=== PATIENT | female | born 1945 | race Caucasian/White ===

== ENCOUNTER → 2017-04-06 | Outpatient (REF) | payer MEDICARE, OTHER | LOC: M LAB REF 11:45 | DX: E04.1 Nontoxic single thyroid nodule (principal) | CPT/HCPCS: 88173 ==

== ENCOUNTER → 2019-01-01 | Outpatient (CLI) | payer MEDICARE, OTHER, BC ==
[2019-01-01 12:24] LABS: BASO % 0.5 % (0.0-1.0); EOS # 0.2 10^3/uL (0.0-0.5); EOS % 2.2 % (0.0-3.0); HEMOGLOBIN 14.1 g/dl (12.0-15.5); LYMPH # 2.1 10^3/uL (1.5-5.0); LYMPH % 27.2 % (24.0-44.0); MEAN CORPUSCULAR HEMOGLOBIN 31.5 pg (27.0-33.0); MEAN CORPUSCULAR VOLUME 98.2 fl (80.0-96.0); MONO # 0.6 10^3/uL (0.0-0.8); MONO % 7.2 % (0.0-5.0); NEUTROPHILS # 4.8 10^3/uL (1.5-8.5); NEUTROPHILS % 62.5 % (36.0-66.0); PLATELET COUNT, AUTOMATED 207 10^3/uL (150-450); RED BLOOD COUNT 4.48 10^6/uL (4.00-5.40); WHITE BLOOD COUNT 7.7 10^3/uL (4.0-10.0)
[2019-01-01 12:44] LABS: ALBUMIN 3.7 GM/DL (3.2-5.2); ALT/SGPT 44 U/L (12-78); BILIRUBIN,TOTAL 0.4 MG/DL (0.2-1.0); BLOOD UREA NITROGEN 20 MG/DL (7-18); CALCIUM LEVEL 9.6 MG/DL (8.8-10.2); CARBON DIOXIDE LEVEL 32 MEQ/L (21-32); CHLORIDE LEVEL 105 MEQ/L (98-107); CHOLESTEROL LEVEL 212 MG/DL (<200); CHOLESTEROL RISK RATIO 3.261 (<5); CREATININE FOR GFR 0.82 MG/DL (0.55-1.30); GLOMERULAR FILTRATION RATE > 60.0 (>39); GLUCOSE, FASTING 93 MG/DL (70-100); HDL CHOLESTEROL 65 MG/DL (>40); LDL CHOLESTEROL 123 MG/DL (<100); NON-HDL-C 147 MG/DL; POTASSIUM SERUM 4.3 MEQ/L (3.5-5.1); SODIUM LEVEL 141 MEQ/L (136-145); TOTAL 25(OH) VITAMIN D 53.5 NG/ML (30.0-100.0); TOTAL PROTEIN 7.2 GM/DL (6.4-8.2); TRIGLYCERIDES LEVEL 118 MG/DL (<150)
== END ==
LOC: M WUC 10:14
PROVIDERS: ATTEND Nurse Practitioner Family
DX: I10 Essential (primary) hypertension (principal); E55.9 Vitamin D deficiency, unspecified

== ENCOUNTER → 2019-12-22 | Outpatient (REF) | payer MEDICARE, OTHER, BC ==
[2019-12-22 13:21] LABS: ALBUMIN 3.5 GM/DL (3.2-5.2); ALT/SGPT 45 U/L (12-78); BILIRUBIN,TOTAL 0.6 MG/DL (0.2-1.0); BLOOD UREA NITROGEN 14 MG/DL (7-18); CALCIUM LEVEL 9.2 MG/DL (8.8-10.2); CARBON DIOXIDE LEVEL 32 MEQ/L (21-32); CHLORIDE LEVEL 102 MEQ/L (98-107); CHOLESTEROL LEVEL 156 MG/DL (<200); CHOLESTEROL RISK RATIO 2.644 (<5); CREATININE FOR GFR 0.86 MG/DL (0.55-1.30); GLOMERULAR FILTRATION RATE > 60.0 (>39); GLUCOSE, FASTING 100 MG/DL (70-100); HDL CHOLESTEROL 59 MG/DL (>40); LDL CHOLESTEROL 68 MG/DL (<100); NON-HDL-C 97 MG/DL; POTASSIUM SERUM 3.8 MEQ/L (3.5-5.1); SODIUM LEVEL 140 MEQ/L (136-145); TRIGLYCERIDES LEVEL 146 MG/DL (<150)
== END ==
LOC: M SFHCCLAY 11:43
PROVIDERS: ATTEND Family Medicine
DX: E78.00 Pure hypercholesterolemia, unspecified (principal); I10 Essential (primary) hypertension

== ENCOUNTER → 2020-08-26 | Outpatient (CLI) | payer MEDICARE, OTHER, BC ==
--- NOTE | 2020-08-26 11:35 | REP ---
INDICATION: ABNORMAL MAMMOGRAM OF RIGHT BREAST 6 MONTH F/U. Mammography from January 22, 2020 was BI-RADS category 0 due to a in small bradley density in the central right breast. The patient had outside diagnostic valuation report of ultrasound from 23 February 2020 describes a 5 mm cyst in the right breast and BI-RADS category 3 follow-up recommendation. COMPARISON: Comparison mammography January 22, 2020, May 17, 2018, and March 13, 2017. TECHNIQUE: Craniocaudal, mediolateral, and mediolateral oblique views of the right breast are obtained and augmented by 3D tomography. Targeted right breast sonography is performed. This mammogram was interpreted with the aid of an FDA-approved computer-aided detection system. FINDINGS: Scattered fibroglandular elements are seen. The previously noted new density in the retroareolar region of the right breast on January 22, 2020 is not seen today. This appears to have regressed. No bradley density, architectural distortion, or microcalcification is seen. 3D tomography shows no additional findings. The Volpara volumetric breast density pattern is B. Targeted ultrasound: Targeted central right breast retroareolar sonography shows heterogeneous fibroglandular background echotexture. No cyst, mass, or acoustic shadowing is seen. IMPRESSION: BIRADS/ACR category 1 negative right breast mammographic and sonographic findings. This patient's Tyrer-Cuzick lifetime breast cancer risk assessment score is 3.6%. RECOMMENDATION: Repeat screening mammography recommended 1 year (for women over 40). The patient letter being requested is M1. <Electronically signed by Jameson Cabello > 08/26/20 0845
== END ==
LOC: M WHC 10:08
PROVIDERS: ATTEND Family Medicine
DX: R92.8 Other abnormal and inconclusive findings on diagnostic imaging of breast (principal)
CPT/HCPCS: 76642; 77065; G0279

== ENCOUNTER → 2020-12-11 | Outpatient (CLI) | payer MEDICARE, BC, OTHER ==
[~2020-12-11] MED LIST: ASPI81CH33 PO; ATOR1TAB19; BENA1TAB32; CITA10TA5; ERGO500029; PANT40TA29; [UNRECOGNIZED DRUG - CODE]
== END ==
LOC: M LABSMTC 11:37
PROVIDERS: ATTEND Anesthesiology
DX: Z01.812 Encounter for preprocedural laboratory examination (principal); Z20.822 Contact with and (suspected) exposure to COVID-19

== ENCOUNTER 2020-12-16 08:53 | Day surgery (SDC) | payer MEDICARE, BC, OTHER ==
[~2020-12-16] VITALS: Ht 170.2 cm; Wt 124.2 kg
[~2020-12-16 08:53] MED LIST changes: +LIDOCAINE 2% 100MG/5ML SDV (FOR ANES.) As Ordered ONE; +NS 1,000 ML IV ONE; +propofoL 200 MG/20 ML VIAL As Ordered ONE
--- OUTSIDE RECORDS SUMMARY | 2020-12-16 08:58 | CCD | Continuity of Care Document ---
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 AUTM [phone] Problems Active Problems Provider Date Essential hypertension Onset: 09/27/2020 Social History Type Date Description Comments Sex Unknown ETOH Use 3 A Month Tobacco Use Start: Unknown Non Smoker Allergies, Adverse Reactions, Alerts Active Allergies Criticality Reaction | Severity Comments Date Sulfa Unable to assess criticality 09/27/2020 Ditropan Unable to assess criticality 09/27/2020 Medications Active Medications SIG Qnty Indications Ordering Provide r Date Clenpiq 10-3.5-12mg-GM -GM/160ML S olution take as directed per doctor's bowel prep instructions. 320ml Z12.1 1 Jorge Velazquez MD 11/02/[address] take 4 tabs by mouth prior to procedure per instructions. 4tabs Z12.11 Jorge Velazquez MD 11/02/2020 Benazepril HCL/Hydrochlorothiazide 10-12.5mg Tablets Daily Unknown Atorvastatin Calcium 10mg Tablets 1 by mouth every day Unknown Pantoprazole Sodium 40mg Tablets D R every other day Unknown Escitalopram Oxalate 10mg Tablets Daily Unknown Aspirin [address] 1 by mouth every day Unknown Vitamin D (Ergocalciferol) 1.25mg (96838 Ut) Capsules 1 cap by mouth every week Unknown Multivitamin Tablets 1 by mouth every day Unknown Clobetasol Propionate Emollient 0.05% Cream prn Unknown Immunizations Description No Information Available Vital Signs Date Vital Result Comment 11/02/2020 8:50am BP Systolic 142 mmHg BP Diastolic 72 mmHg Height 67 inches 5'7" Weight 278.00 lb BMI (Body Mass Index) 43.5 kg/m2 [place] Body Weight 135 lb Weight 126.101 kg BSA (Body Surface Area) 2.33 m2 Results Description No Information Available Procedures Description No Information Available Medical Devices Description No Information Available Encounters Description No Information Available Assessments Date Code Description Provider 11/02/2020 Z12.11 Encounter for screening for shivani gnant neoplasm of colon MURALI Somers 11/02/2020 Z86.010 Personal history of colonic poly ps MURALI Somers Plan of Treatment 11/02/2020 - MURALI Somers* Z12.11 Encounter for screening for malignant neoplasm of colon * Z86.010 Personal history of colonic polyps * * New Medication:* Clenpiq 10-3.5-12 mg-GM -GM/160ML * Dulcolax 5 mg * New Orders:* Colonoscopy, Ordered: 11/02/20 * Comments:* Will arrange for colonoscopy. Reviewed risks and benefits of the procedure, as well as other options, with the patient. Bowel prep procedure was discussed with patient, as well as risks and side effects associated with the bowel prep. Patient verbalized understanding of all of the above and is in agreement to proceed. Patient will seek medical attention for any acute changes. Will monitor. * Follow up:* As scheduled, sooner if needed. Functional Status Description No Information Available Mental Status Description No Information Available Referrals Refer to Reason for Referral Status Appt Date Gilmar Orantes M.D. COLO SCREEN - HX OF POLYP Scheduled 10/20/2020 [facility] [address], [address] [place] [address] [phone]
--- OUTSIDE RECORDS SUMMARY | 2020-12-16 08:58 | CCD | Continuity of Care Document ---
Author Author [facility] Organization Unknown Address [address], [address] [place] [address] Phone [phone] Care Team Providers Care Welding Machine Operator Name Role Phone Hung Saravia M.D. AUTM [phone] Problems Active Problems Provider Date Essential hypertension [...] every day Unknown Vitamin D (Ergocalciferol) 1.25mg (56599 Ut) Capsules 1 cap by mouth every week Unknown Multivitamin Tablets 1 by mouth every day Unknown Clobetasol Propionate Emollient 0.05% Cream prn Unknown Immunizations Description No Information Available Vital Signs Date Vital Result Comment 11/02/2020 8:50am BP Systolic 142 mmHg BP Diastolic 72 mmHg Height 67 inches 5'7" Weight 278.00 lb BMI (Body Mass Index) 43.5 kg/m2 [place] Body Weight 135 lb Weight 126.101 kg [...] SCREEN - HX OF POLYP Scheduled 10/20/2020 [facility] [address], [address] [place] [address] [phone]
--- OUTSIDE RECORDS SUMMARY | 2020-12-16 08:58 | CCD ---
Author Author [facility] Organization [facility] Address Unknown Phone Unavailable Care Team Providers Care Coating Line Worker Name Role Phone Fish, B Anibal SHARPE Unavailable Unavailable Fish, B Anibal SHARPE Unavailable Unavailable Fish, B Anibal SHARPE Unavailable Unavailable Fish, B Anibal SHARPE Unavailable Unavailable Fish, B Anibal SHARPE Unavailable Unavailable Fish, B Anibal SHARPE Unavailable Unavailable Fish, B Anibal SHARPE Unavailable Unavailable Fish, B Anibal SHARPE Unavailable Unavailable Fish, B Anibal SHARPE Unavailable Unavailable Fish, B Anibal SHARPE Unavailable Unavailable Fish, B Anibal SHARPE Unavailable Unavailable Fish, B Anibal SHARPE Unavailable Unavailable Fish, B Anibal SHARPE Unavailable Unavailable Fish, B Anibal SHARPE Unavailable Unavailable Fish, B Anibal SHARPE Unavailable Unavailable Fish, B Anibal SHARPE Unavailable Unavailable Fish, B Anibal SHARPE Unavailable Unavailable Fish, B Anibal SHARPE Unavailable Unavailable Fish, B Anibal SHARPE Unavailable Unavailable Fish, B Anibal SHARPE Unavailable Unavailable Fish, B Anibal SHARPE Unavailable Unavailable Fish, B Anibal SHARPE Unavailable Unavailable Fish, B Anibal SHARPE Unavailable Unavailable Fish, B Anibal SHARPE Unavailable Unavailable Fish, B Anibal SHARPE Unavailable Unavailable Fish, B Anibal SHARPE Unavailable Unavailable Fish, B Anibal SHARPE Unavailable Unavailable Fish, B Anibal SHARPE Unavailable Unavailable Fish, B Anibal SHARPE Unavailable Unavailable Fish, B Anibal SHARPE Unavailable Unavailable Fish, B Anibal SHARPE Unavailable Unavailable Fish, B Anibal SHARPE Unavailable Unavailable Fish, B Anibal SHARPE Unavailable Unavailable Fish, B Anibal SHARPE Unavailable Unavailable Fish, B Anibal SHARPE Unavailable Unavailable Fish, B Anibal SHARPE Unavailable Unavailable Fish, B Anibal SHARPE Unavailable Unavailable Fish, B Anibal SHARPE Unavailable Unavailable Fish, B Anibal SHARPE Unavailable Unavailable Fish, B Anibal SHARPE Unavailable Unavailable Fish, B Anibal SHARPE Unavailable Unavailable Fish, B Anibal SHARPE Unavailable Unavailable Fish, B Anibal SHARPE Unavailable Unavailable Fish, B Anibal SHARPE Unavailable Unavailable Fish, B Anibal SHARPE Unavailable Unavailable Fish, B Anibal SHARPE Unavailable Unavailable Fish, B Anibal SHARPE Unavailable Unavailable Fish, B Anibal SHARPE Unavailable Unavailable Fish, B Anibal SHARPE Unavailable Unavailable Fish, B Anibal SHARPE Unavailable Unavailable Fish, B Anibal SHARPE Unavailable Unavailable Fish, B Anibal SHARPE Unavailable Unavailable Fish, B Anibal SHARPE Unavailable Unavailable Fish, B Anibal SHARPE Unavailable Unavailable Fish, B Anibal SHARPE Unavailable Unavailable Fish, B Anibal SHARPE Unavailable Unavailable Fish, B Kelly SHARPE Unavailable Unavailable Fish, B Kelly SHARPE Unavailable Unavailable Fish, B Kelly SHARPE Unavailable Unavailable Fish, B Kelly SHARPE Unavailable Unavailable Fish, B Kelly SHARPE Unavailable Unavailable Fish, B Kelly SHARPE Unavailable Unavailable Fish, B Kelly SHARPE Unavailable Unavailable Fish, B Kelly SHARPE Unavailable Unavailable Fish, B Kelly SHARPE Unavailable Unavailable Fish, B Kelly SHARPE Unavailable Unavailable Fish, B Kelly SHARPE Unavailable Unavailable Fish, B Kelly SHARPE Unavailable Unavailable Fish, B Kelly SHARPE Unavailable Unavailable Fish, B Kelly SHARPE Unavailable Unavailable Fish, B Kelly SHARPE Unavailable Unavailable Fish, B Kelly SHARPE Unavailable Unavailable Fish, B Kelly SHARPE Unavailable Unavailable Fish, B Kelly SHARPE Unavailable Unavailable Fish, Clyde Mendoza MD Unavailable Unavailable Fish, B Kelly SHARPE Unavailable Unavailable Fish, B Kelly SHARPE Unavailable Unavailable Fish, B Kelly SHARPE Unavailable Unavailable Fish, B Kelly SHARPE Unavailable Unavailable Fish, B Kelly SHARPE Unavailable Unavailable Fish, B Kelly SHARPE Unavailable Unavailable Fish, B Kelly SHARPE Unavailable Unavailable Fish, B Kelly SHARPE Unavailable Unavailable Fish, B Kelly SHARPE Unavailable Unavailable Fish, B Kelly SHARPE Unavailable Unavailable Fish, B Kelly SHARPE Unavailable Unavailable Fish, B Kelly SHARPE Unavailable Unavailable Fish, B Kelly SHARPE Unavailable Unavailable Fish, B Kelly SHARPE Unavailable Unavailable Fish, B Kelly SHARPE Unavailable Unavailable Fish, B Kelly MD Unavailable Unavailable Fish, B Kelly MD Unavailable Unavailable Fish, B Kelly MD Unavailable Unavailable Fish, B Kelly MD Unavailable Unavailable Fish, B Kelly MD Unavailable Unavailable Fish, B Kelly MD Unavailable Unavailable Fish, B Kelly MD Unavailable Unavailable Fish, B Kelly MD Unavailable Unavailable Fish, B Kelly MD Unavailable Unavailable Fish, B Kelly MD Unavailable Unavailable Fish, B Kelly MD Unavailable Unavailable Fish, B Kelly MD Unavailable Unavailable Fish, B Kelly MD Unavailable Unavailable Fish, B Kelly MD Unavailable Unavailable Fish, B Kelly MD Unavailable Unavailable Fish, B Kelly MD Unavailable Unavailable Fish, B Kelly MD Unavailable Unavailable Fish, B Kelly MD Unavailable Unavailable Fish, B Kelly MD Unavailable Unavailable Fish, B Kelly MD Unavailable Unavailable Fish, B Kelly MD Unavailable Unavailable Fish, B Kelly MD Unavailable Unavailable Fish, B Kelly MD Unavailable Unavailable Fish, B Kelly MD Unavailable Unavailable Fish, B Kelly MD Unavailable Unavailable Fish, B Kelly MD Unavailable Unavailable Fish, B Kelly MD Unavailable Unavailable Fish, B Kelly MD Unavailable Unavailable Fish, B Kelly MD Unavailable Unavailable Fish, B Kelly MD Unavailable Unavailable Fish, B Kelly MD Unavailable Unavailable Re-disclosure Warning The records that you are about to access may contain information from federally-assisted alcohol or drug abuse programs. If such information is present, then the following federally mandated warning applies: This information has been disclosed to you from records protected by federal confidentiality rules (42 CFR part 2). The federal rules prohibit you from making any further disclosure of this information unless further disclosure is expressly permitted by the written consent of the person to whom it pertains or as otherwise permitted by 42 CFR part 2. A general authorization for the release of medical or other information is NOT sufficient for this purpose. The Federal rules restrict any use of the information to criminally investigate or prosecute any alcohol or drug abuse patient.The records that you are about to access may contain highly sensitive health information, the redisclosure of which is protected by Article 27-F of the [place] State Public Health law. If you continue you may have access to information: Regarding HIV / AIDS; Provided by facilities licensed or operated by the [facility] Mental [facility]; or Provided by the [facility] Office for People With Developmental Disabilities. If such information is present, then the following [facility] mandated warning applies: This information has been disclosed to you from confidential records which are protected by state law. State law prohibits you from making any further disclosure of this information without the specific written consent of the person to whom it pertains, or as otherwise permitted by law. Any unauthorized further disclosure in violation of state law may result in a fine or mcc sentence or both. A general authorization for the release of medical or other information is NOT sufficient authorization for further disc losure. Family History Family Member Name Family Member Gender Family Member Status Date o f Status Description Data Source(s) Unknown Female Problem MEDENT ([facility]) Unknown Female Problem MEDENT ([facility]) Encounters Encounter Providers Location Date Indications Data Source(s ) [place] [address] [facility] [address] 11/10/2020 12:00:00 AM EDT [facility]CW1 ([facility] [place] [address] [facility] [place] [address] 08/30/2020 12:00:00 AM EDT [facility]CW1 [facility] Office Visit Attender: Anibal Nguyen MD Physical Therapy 2020 09:45:00 AM EDT MEDENT ([facility]) Office Visit Attender: Anibal Nguyen MD Physical Therapy 2020 08:30:00 AM EDT MED[facility] ([facility]) Outpatient [address] [facility] [address] 08/12/2020 12:00:00 AM EDT eCW1 ([facility]) [place] [address] [facility] [address] 08/12/2020 12:00:00 AM EDT eCW1 ([facility]) OFFICE OUTPATIENT VISIT 15 MINUTES Attender: Kelly Nguyen MD Phy sical Therapy 08/11/2020 03:45:00 PM EDT MEDENT ([facility]) Office Visit Attender: Anibal Nguyen MD Physical Therapy 2020 02:45:00 PM EDT MED[facility] ([facility]) Outpatient [address] [facility] [address] 08/05/2020 12:00:00 AM EDT eCW1 ([facility]) Office Visit Attender: Anibal Nguyen MD Physical Therapy 2019 07:30:00 AM EST MEDENT ([facility]) Office Visit Attender: Anibal Nguyen MD Physical Therapy 2019 08:45:00 AM EST MEDENT ([facility]) Office Visit Attender: Anibal Nguyen MD Physical Therapy 2019 01:15:00 PM EST MEDENT ([facility]) Immunizations Vaccine Date Status Description Data Source(s) Moderna #2 dose COVID-19(given elsewhere) SARSCOV2 VAC 100MCG/0.5ML IM 05/18/2020 11:08:00 AM EDT completed eCW1 ([facility]) Moderna #2 dose COVID-19(given elsewhere) SARSCOV2 VAC 100MCG/0.5ML IM 05/18/2020 11:08:00 AM EDT completed eCW1 ([facility]) Moderna #2 dose COVID-19(given elsewhere) SARSCOV2 VAC 100MCG/0.5ML IM 05/18/2020 11:08:00 AM EDT completed eCW1 ([facility]) Moderna #2 dose COVID-19(given elsewhere) SARSCOV2 VAC 100MCG/0.5ML IM 05/18/2020 11:08:00 AM EDT completed eCW1 ([facility]) Moderna #2 dose COVID-19(given elsewhere) SARSCOV2 VAC 100MCG/0.5ML IM 05/18/2020 11:08:00 AM EDT completed eCW1 ([facility]) Moderna #1 dose COVID-19(given elsewhere) SARSCOV2 VAC 100MCG/0.5ML IM 04/20/2020 11:07:00 AM EST completed eCW1 ([facility]) Moderna #1 dose COVID-19(given elsewhere) SARSCOV2 VAC 100MCG/0.5ML IM 04/20/2020 11:07:00 AM EST completed eCW1 ([facility]) Moderna #1 dose COVID-19(given elsewhere) SARSCOV2 VAC 100MCG/0.5ML IM 04/20/2020 11:07:00 AM EST completed eCW1 ([facility]) Moderna #1 dose COVID-19(given elsewhere) SARSCOV2 VAC 100MCG/0.5ML IM 04/20/2020 11:07:00 AM EST completed eCW1 ([facility]) Moderna #1 dose COVID-19(given elsewhere) SARSCOV2 VAC 100MCG/0.5ML IM 04/20/2020 11:07:00 AM EST completed eCW1 ([facility]) Medications Medication Brand Name Start Date Product Form Dose Route Admi nistrative Instructions Pharmacy Instructions Status Indications Reaction Description Data Source(s) atorvastatin 10 MG Oral Tablet ATORVASTATIN CALCIUM 11/11/2020 1 2:00:00 AM EDT tablet 90 TAKE 1 TABLET BY MOUTH EVERY DAY AT BEDTIME TAKE 1 TABLET BY MOUTH EVERY DAY AT BEDTIME SOLD: 11/14/2020 [facility] Bisacodyl 5 MG Delayed Release Oral Tablet [Dulcolax] Dulcol ax 11/02/2020 12:00:00 AM EDT ORAL active M EDENT ([facility], ) Citric Acid 75 MG/ML / Magnesium Oxide 2 1.9 MG/ML / picosulfate sodium 0.0625 MG/ML Oral Solution [Clenpiq] 10 mg-3.5 gram -12 gram/160 mL SOD PICOSULF/MAG OX/CITRIC AC 11/02/2020 12:00:00 AM EDT solution 320 T YA DIRECTED PER DRS BOWEL PREP INSTRUCTIONS TAKE DIRECTED PER DRS BOWEL PREP INSTRUCTIONS SOLD: 11/14/2020 [facility] Clenpiq Clenpiq 11/02/2020 12:00:00 AM EDT active MEDENT ([facility], ) 1,250 mcg (50,000 unit) 04/12/2020 12:00:00 AM EST capsule 12 TAKE 1 CAPSULE BY MOUTH ONCE A WEEK TAKE 1 CAPSULE BY MOUTH ONCE A WEEK SOLD: 04/12/2020 [facility] 1,250 mcg (50,000 unit) 04/12/2020 12:00:00 AM EST capsule 12 TAKE 1 CAPSULE BY MOUTH ONCE A WEEK TAKE 1 CAPSULE BY MOUTH ONCE A WEEK SOLD: 09/07/2020 [facility] Benazepril hydrochloride 10 MG / Hydroch lorothiazide 12.5 MG Oral Tablet Benazepril-hydroCHLOROthiazide 10-12.5 MG Benazepril-hydroCHLOROthiazide 10-12.5 MG 01/13/2020 12:00:00 AM EST 1.0 {tablet} activ e Benazepril- hydroCHLOROthiazide 10-12.5 MG eCW ([facility]) Ergocalciferol 40580 UNT Oral Capsule Vi tamin D (Ergocalciferol) 1.25 MG (96255 UT) Vitamin D (Ergocalciferol) 1.25 MG (64576 UT) 01/13/2020 12:00:0 0 AM EST 1.0 {capsule} active Vitamin D (Ergocal ciferol) 1.25 MG (29589 UT) eCW ([facility]) pantoprazole 40 MG Delayed Release Oral Tablet Pantopr azole Sodium 40 MG Pantoprazole Sodium 40 MG 01/13/2020 12:00:00 AM EST 1.0 {tablet} active Pantoprazole Sodium 40 MG eCW1 ( [facility]) pantoprazole 40 MG Delayed Release Oral Tablet PANTOPRAZOLE SODIUM 01/13/2020 12:00:00 AM EST tablet,delayed release (DR/EC) 90 T YA 1 TABLET BY MOUTH ONCE A DAY TAKE 1 TABLET BY MOUTH ONCE A DAY SOLD: 01/17/2020 [facility] Ergocalciferol 26729 UNT Oral Capsule Vi tamin D (Ergocalciferol) 1.25 MG (96531 UT) Vitamin D (Ergocalciferol) 1.25 MG (24092 UT) 01/13/2020 12:00:0 0 AM EST 1.0 {capsule} active Vitamin D (Ergocal ciferol) 1.25 MG (31759 UT) eC ([facility]) 0.05 % 01/13/2020 12:00:00 AM EST ointment 90 APPLY TO AFFECTED AREA(S) TWO TIMES A DAY APPLY TO AFFECTED AREA(S) TWO TIMES A DAY SOLD: 11/14/2020 [facility] Ergocalciferol 09567 UNT Oral Capsule Vi tamin D (Ergocalciferol) 1.25 MG (92819 UT) Vitamin D (Ergocalciferol) 1.25 MG (03416 UT) 01/13/2020 12:00:0 0 AM EST 1.0 {capsule} active Vitamin D (Ergocal ciferol) 1.25 MG (44964 UT) eCW1 ([facility]) pantoprazole 40 MG Delayed Release Oral Tablet Pantopr azole Sodium 40 MG Pantoprazole Sodium 40 MG 01/13/2020 12:00:00 AM EST 1.0 {tablet} active Pantoprazole Sodium 40 MG eCW1 ( [facility]) 10-12.5 mg 01/13/2020 12:00:00 AM EST tablet 90 TAKE 1 TABLET BY MOUTH ONCE A DAY TAKE 1 TABLET BY MOUTH ONCE A DAY SOLD: 06/06/2020 [facility] 10 mg 01/13/2020 12:00:00 AM EST tablet 90 TAKE 1 TABLET BY MOUTH ONCE A DAY TAKE 1 TABLET BY MOUTH ONCE A DAY SOLD: 01/17/2020 [facility] pantoprazole 40 MG Delayed Release Oral Tablet Pantopr azole Sodium 40 MG Pantoprazole Sodium 40 MG 01/13/2020 12:00:00 AM EST 1.0 {tablet} active Pantoprazole Sodium 40 MG eCW1 ( [facility]) Clobetasol Propionate 0.0005 MG/MG Topic al Ointment Clobetasol Propionate 0.05 % Clobetasol Propionate 0.05 % 01/13/2020 12:00:00 AM EST 1. 0 {application} active Clobetasol Propionate 0.0 5 % W1 ([facility]) Benazepril hydrochloride 10 MG / Hydroch lorothiazide 12.5 MG Oral Tablet Benazepril-hydroCHLOROthiazide 10-12.5 MG Benazepril-hydroCHLOROthiazide 10-12.5 MG 01/13/2020 12:00:00 AM EST 1.0 {tablet} activ e Benazepril- hydroCHLOROthiazide 10-12.5 MG eCW1 ([facility]) 10-12.5 mg 01/13/2020 12:00:00 AM EST tablet 90 TAKE 1 TABLET BY MOUTH ONCE A DAY TAKE 1 TABLET BY MOUTH ONCE A DAY SOLD: 01/17/2020 [facility] Benazepril hydrochloride 10 MG / Hydroch lorothiazide 12.5 MG Oral Tablet Benazepril-hydroCHLOROthiazide 10-12.5 MG Benazepril-hydroCHLOROthiazide 10-12.5 MG 01/13/2020 12:00:00 AM EST 1.0 {tablet} activ e Benazepril- hydroCHLOROthiazide 10-12.5 MG eCW1 ([facility]) Benazepril hydrochloride 10 MG / Hydroch lorothiazide 12.5 MG Oral Tablet Benazepril-hydroCHLOROthiazide 10-12.5 MG Benazepril-hydroCHLOROthiazide 10-12.5 MG 01/13/2020 12:00:00 AM EST 1.0 {tablet} activ e Benazepril- hydroCHLOROthiazide 10-12.5 MG eCW1 ([facility]) Benazepril hydrochloride 10 MG / Hydroch lorothiazide 12.5 MG Oral Tablet Benazepril-hydroCHLOROthiazide 10-12.5 MG Benazepril-hydroCHLOROthiazide 10-12.5 MG 01/13/2020 12:00:00 AM EST 1.0 {tablet} activ e Benazepril- hydroCHLOROthiazide 10-12.5 MG eCW1 ([facility]) Clobetasol Propionate 0.0005 MG/MG Topic al Ointment Clobetasol Propionate 0.05 % Clobetasol Propionate 0.05 % 01/13/2020 12:00:00 AM EST 1. 0 {application} active Clobetasol Propionate 0.0 5 % eCW1 ([facility]) pantoprazole 40 MG Delayed Release Oral Tablet Pantopr azole Sodium 40 MG Pantoprazole Sodium 40 MG 01/13/2020 12:00:00 AM EST 1.0 {tablet} active Pantoprazole Sodium 40 MG eCW1 ( [facility]) 0.05 % 01/13/2020 12:00:00 AM EST ointment 90 APPLY TO AFFECTED AREA(S) TWO TIMES A DAY APPLY TO AFFECTED AREA(S) TWO TIMES A DAY SOLD: 01/17/2020 [facility] pantoprazole 40 MG Delayed Release Oral Tablet Pantopr azole Sodium 40 MG Pantoprazole Sodium 40 MG 01/13/2020 12:00:00 AM EST 1.0 {tablet} active Pantoprazole Sodium 40 MG eCW1 ( [facility]) Ergocalciferol 38203 UNT Oral Capsule Vi tamin D (Ergocalciferol) 1.25 MG (83860 UT) Vitamin D (Ergocalciferol) 1.25 MG (25232 UT) 01/13/2020 12:00:0 0 AM EST 1.0 {capsule} active Vitamin D (Ergocal ciferol) 1.25 MG (20884 UT) eCW1 ([facility]) Ergocalciferol 69654 UNT Oral Capsule Vi tamin D (Ergocalciferol) 1.25 MG (24958 UT) Vitamin D (Ergocalciferol) 1.25 MG (79338 UT) 01/13/2020 12:00:0 0 AM EST 1.0 {capsule} active Vitamin D (Ergocal ciferol) 1.25 MG (88313 UT) eCW1 ([facility]) Clobetasol Propionate 0.0005 MG/MG Topic al Ointment Clobetasol Propionate 0.05 % Clobetasol Propionate 0.05 % 01/13/2020 12:00:00 AM EST 1. 0 {application} active Clobetasol Propionate 0.0 5 % eCW1 ([facility]) Clobetasol Propionate 0.0005 MG/MG Topic al Ointment Clobetasol Propionate 0.05 % Clobetasol Propionate 0.05 % 01/13/2020 12:00:00 AM EST 1. 0 {application} active Clobetasol Propionate 0.0 5 % eCW1 ([facility]) Clobetasol Propionate 0.0005 MG/MG Topic al Ointment Clobetasol Propionate 0.05 % Clobetasol Propionate 0.05 % 01/13/2020 12:00:00 AM EST 1. 0 {application} active Clobetasol Propionate 0.0 5 % eCW1 ([facility]) 2 ML Sodium Hyaluronate 10 MG/ML Prefilled Syringe [Euflexxa ] Euflexxa 01/12/2020 12:00:00 AM EST active MEDENT ([facility] ) atorvastatin 10 MG Oral Tablet ATORVASTATIN CALCIUM 10/21/2019 1 2:00:00 AM EDT tablet 90 TAKE ONE TABLET BY MOUTH EVERY D AY AT BEDTIME TAKE ONE TABLET BY MOUTH EVERY DAY AT BEDTIME SOLD: 06/06/2020 [facility] atorvastatin 10 MG Oral Tablet ATORVASTATIN CALCIUM 10/21/2019 1 2:00:00 AM EDT tablet 90 TAKE ONE TABLET BY MOUTH EVERY D AY AT BEDTIME TAKE ONE TABLET BY MOUTH EVERY DAY AT BEDTIME SOLD: 01/24/2020 [facility] atorvastatin 10 MG Oral Tablet ATORVASTATIN CALCIUM 10/21/2019 1 2:00:00 AM EDT tablet 90 TAKE ONE TABLET BY MOUTH EVERY D AY AT BEDTIME TAKE ONE TABLET BY MOUTH EVERY DAY AT BEDTIME SOLD: 10/23/2019 [facility] 1,250 mcg (50,000 unit) 02/02/2019 12:00:00 AM EST capsule 12 TAKE 1 CAPSULE BY MOUTH ONCE A WEEK TAKE 1 CAPSULE BY MOUTH ONCE A WEEK SOLD: 12/17/2019 [facility] Insurance Providers Payer name Policy type / Coverage type Policy ID Covered democrat ID Covered democrat's relationship to rubin Policy Rubin Plan Information MEDICARE [id number] Monica [id number] T [place] [id number] S [id number] [place] [id number] S [id number] [facility] [id number] [facility] YLS [id number] [facility] Part B [id number] Family Dependent [id number] [facility] Part B [id number] Family Dependent [id number] [facility] Part B [id number] Family Dependent [id number] [facility] Part B [id number] Family Dependent [id number] [facility] Part B [id number] Family Dependent [id number] [facility] Part B [id number] Family Dependent [id number] [facility] B [id number] Family Dependent [id number] MEDICARE [id number] SP [id number] A [employer] [id number] S [id number] [employer] MED[employer]ARE [employer]ISION [id number] S [id number] MEDICARE [id number] SP [id number] [facility] [id number] S [id number] BCBS EMPIRE OWEN DIV [id number] HU2 [id number] [facility] [id number] HU2 [id number] [facility] [id number] S [id number] BCBS EMPIRE [id number] S [id number] [facility] [id number] SPO [id number] BCBS E[place]IRE [id number] SPO [id number] BCBS E[place]IRE [id number] SPO [id number] ANSI-Medicare Part B [id number] ANSI-Commercial [id number] ANSI-Commercial [id number] ANSI-Medicare Part B [id number] [facility] [id number] HUS [id number] MCRB [id number] S [id number] A MEDICARE [id number] S [id number] A BLUE CROSS [id number] SELF PAY UNAVAILABLE S UNAVAILA BLE MCRB [id number] A MEDICARE [id number] [place]IC[place] MCR [id number] S [id number] [facility] Part B [id number] Self [id number] Medicare [place] Medicare Primary [id number] [facility] [id number] Self [id number] Medicare [place] Medicare Primary [id number] [facility] [id number] Self [id number] Medicare [place] Medicare Primary [id number] Self [id number] [facility] Part B [id number] Self [id number] Medicare [place] Medicare Primary [id number] Self [id number] [facility] [place] Part B [id number] Family Dep endent Medicare Natl Gov't Servi Medicare Primary [id number] Self [facility] Part B [id number] Family Dependent Medicare [place] Medicare Primary .[id number] Self MEDICARE C [id number] S [id number] T [facility] O [id number] S [id number] MEDICARE [id number] SP [id number] T BCBS [place] DIV UNAVAILABLE UNAVAILABLE MEDICARE - [place] MCR [id number] S [id number] BCBS [place] DIV [id number] HU2 [id number] BCBS [place] [id number] HU2 [id number] [place] OF [place] 306/806 [id number] SP [id number] MEDICARE C [id number] S [id number] EMPIRE ([facility]) P [id number] S [id number] [place] [id number] SPOUSE [id number] MEDICARE [id number] S [id number] Medicare [place] Medicare Primary [id number] Self [id number] Medicare [place] Medicare Primary [id number] Self [id number] [facility] Part B [id number] Self [id number] Medicare [place] [id number] Self [id number] [place] [id number] Self [id number] [place] [id number] Self [id number] Medicare [place] Primary [id number] Self [id number] [facility] [id number] SPO [id number] 9 [facility] [id number] SPO [id number] Medicare [place] Medicare Primary [id number] Self [id number] Medicare [place] Medicare Primary [id number] Self [id number] ANS-Medicare Part B [id number] ANSI-Medicare Part B [id number] ANSI-Commercial [id number] Problems, Conditions, and Diagnoses Code Display Name Description Problem Type Effective Dates Data Source(s) 90499972 Essential hypertension Essential hypertension Problem 09/27/2020 12:00:00 AM EDT MEDPATRICK ([facility], ) K21.00 666194485 Gastroesophageal ref lux disease with esophagitis without hemorrhage Problem 08/05/2020 12:00:00 AM EDT eCW1 ([facility]) I10 48750804 Essential hypertension Problem 08/05/2020 12 :00:00 AM EDT eCW1 ([facility]) E04.1 [id number] Thyroid nodule Problem 08/05/2020 12:00:00 A M EDT eCW1 ([facility]) Z86.010 465987063 History of adenomatous polyp of colon Pro blem 08/05/2020 12:00:00 AM EDT eCW1 ([facility]) E78.00 97326138 Hypercholesterolemia Problem 08/05/2020 12:0 0:00 AM EDT eCW1 ([facility]) R92.8 [id number] Abnormal mammogram of right breast Proble m 01/28/2020 12:00:00 AM EST eCW1 ([facility]) Surgeries/Procedures Procedure Description Date Indications Data Source(s) ARTHROCENTESIS ASPIR&/INJECTION MAJOR JT/BURSA 021 12:00:00 AM EDT MEDENT ([facility] ) ARTHROCENTESIS ASPIR&/INJECTION MAJOR JT/BURSA 021 12:00:00 AM EDT MEDENT ([facility] ) Echography Soft Tissue Hand & Neck 08/11/2020 12:00:00 AM EDT MEDENT ([facility] ) OFFICE OUTPATIENT VISIT 15 MINUTES 08/11/2020 12:00:00 AM EDT MEDENT ([facility] ) ARTHROCENTESIS ASPIR&/INJECTION MAJOR JT/BURSA 021 12:00:00 AM EDT MEDENT ([facility] ) ARTHROCENTESIS ASPIR&/INJECTION MAJOR JT/BURSA 12:00:00 AM EST MEDENT ([facility] ) ARTHROCENTESIS ASPIR&/INJECTION MAJOR JT/BURSA 020 12:00:00 AM EST MEDENT ([facility] ) ARTHROCENTESIS ASPIR&/INJECTION MAJOR JT/BURSA 12:00:00 AM EST MEDENT ([facility]) Results ID Date Data Source [id number] 01/22/2020 12:00:00 AM EST [facility] Hung Saravia MD Patient Name: AUDIE MOORE Date of : 1945[place] [id number] Date of Exam: 01/22/2020PH#: Fax: [phone] EXAM: MAMMO SCREENING WITH CADCLINICAL INFORMATION: Screening.Based on the personal and family history information your patient suppliedat the time of imaging, her lifetime risk of breast cancer estimated by theTyrer-Cuzick model is 10.7%. Given that this patient has less than 20% TCrisk score, no further medical management is currently recommended at thistime.Digital screening (2D) mammography was performed bilaterally in the CC andMLO projections. Addit ionally, breast tomosynthesis (3D mammography) wasperformed bilaterally in the CC and MLO projections. Today's exam wascompared to the prior exam(s). The only prior exam with DBT images toreview is 05/17/2018.By history, the patient has no complaints of a palpable breast abnormalityor other significant breast complaints.The patient states that a clinical breast exam was not performed.The breasts are unchanged in size and shape.In the retroareolar central aspect of the right breast seen on both CC andMLO views, there is a potential bradley- slightly asymmetric density. Thefinding is subtle and best seen on DBT imaging. No other suspiciousfeatures are seen in either breast. There is no internal architecturaldistortion. There are no microcalcific clusters. There is no skinthickening or nipple retraction.The Volpara volumetric breast density category is B, there are scatteredareas of fibroglandular density.IMPRESSION:BI- RADS Category 0 - Incomplete: Needs Additional Imaging Evaluation.Potential t iny bradley-density in the right breast as described above for whichdiagnostic digital magnified spot compression views are recommended in theCC and MLO projections along with diagnostic ultrasonography if necessary.Our office will attempt to contact the patient for additional imaging.This mammogram was read with the assistance of [employer] Kil[employer] RECESS., an FDAapproved computer aided detection system for mammography.Negative x-ray reports should not delay surgical consultation if a dominantor clinically suspicious mass is present.Not all breast cancers can be identified by mammography. Therefore, werecommend that you continue to perform regular breast self-examination andphysical examination and then promptly contact your physician of anyconcerns or changes.Adenosis and dense breasts may obscure an underlying neoplasm.ILIR Snyder/Mari you for referring FOSTER MOORE to our office. Electronically Signed - ZENA MERAZ DO 01/23/20 16:57 Name Value Range Interpretation Code Description Data Elsi rce(s) Supporting Document(s) Procedure Social History Code Duration Value Status Description Data Source(s ) Smoking 08/12/2020 12:00:00 AM EDT Never Smoker completed Never S moker eCW1 ([facility]) Smoking 08/12/2020 12:00:00 AM EDT Never Smoker completed Never S moker eCW1 ([facility]) Smoking 08/12/2020 12:00:00 AM EDT Never Smoker completed Never S moker eCW1 ([facility]) Smoking 08/12/2020 12:00:00 AM EDT Never Smoker completed Never S moker eCW1 ([facility]) Smoking 08/11/2020 12:00:00 AM EDT Patient has never smoked co mpleted Patient has never smoked MEDENT ([facility]) Smoking 08/05/2020 12:00:00 AM EDT Never Smoker completed Never S moker eCW1 ([facility]) Vital Signs ID Date Data Source UNK Name Value Range Interpretation Code Description Data Source(s) Systolic blood pressure 142 mm[Hg] 142 mm[Hg] M EDENT ([facility], ) Diastolic blood pressure 72 mm[Hg] 72 mm[Hg] MEDENT ([facility]) Body height 67 [in_i] 67 [in_i] [facility] 5'7" Body weight 278.00 [lb_av] 278.00 [lb_av] MEDEN T ([facility]) Body mass index (BMI) [Ratio] 43.5 kg/m2 43.5 k g/m2 [facility] ([facility]) [place] body weight 135 [lb_av] 135 [lb_av] MEDEN T ([facility], ) Body weight 126.101 kg 126.101 kg MEDENT ([facility]) Body surface area Derived from formula 2.33 m2 2.33 m2 MEDENT ([facility]) Body weight 271 [lb_av] 271 [lb_av] eCW1 ([facility]) Body height 67 [in_i] 67 [in_i] eCW1 ([facility]) Body mass index (BMI) [Ratio] 42.44 kg/m2 42.44 kg/m2 eCW1 ([facility]) Heart rate 80 /min 80 /min eCW1 ([facility]) Respiratory rate 18 /min 18 /min W1 ([facility]) Body temperature 97.9 [degF] 97.9 [degF] eCW1 ( [facility]) Systolic blood pressure 137 mm[Hg] 137 mm[Hg] e CW1 ([facility]) Diastolic blood pressure 79 mm[Hg] 79 mm[Hg] eCW1 ([facility]) Body temperature 96.8 [degF] 96.8 [degF] MEDENT ([facility]) Systolic blood pressure 152 mm[Hg] 152 mm[Hg] M EDENT ([facility] ) Body height 67.25 [in_i] 67.25 [in_i] MEDENT ([facility]) 5'7.25" Diastolic blood pressure 84 mm[Hg] 84 mm[Hg] MEDENT ([facility] ) Heart rate 95 /min 95 /min MEDENT ([facility] ) Body weight 276.31 [lb_av] 276.31 [lb_av] MEDEN T ([facility] ) Body mass index (BMI) [Ratio] 43.0 kg/m2 43.0 k g/m2 MEDENT ([facility] ) Oxygen saturation in Arterial blood by Pulse oximetry 98 % 98 % [facility] Body weight 271 [lb_av] 271 [lb_av] eCW1 ([facility]) Body weight 122.92 kg 122.92 kg eCW1 ([facility]) Body height 67 [in_i] 67 [in_i] eCW1 ([facility]) Body mass index (BMI) [Ratio] 42.44 kg/m2 42.44 kg/m2 eCW1 ([facility]) Heart rate 82 /min 82 /min eCW1 ([facility]) Respiratory rate 18 /min 18 /min eCW1 ([facility]) Body temperature 96.8 [degF] 96.8 [degF] eCW1 ( [facility]) Systolic blood pressure 118 mm[Hg] 118 mm[Hg] e CW1 ([facility]) Diastolic blood pressure 75 mm[Hg] 75 mm[Hg] eCW1 ([facility]) Body mass index (BMI) [Ratio] 41.5 kg/m2 41.5 k g/m2 MEDENT ([facility] ) Body temperature 96.3 [degF] 96.3 [degF] MEDENT ([facility] ) Body height 68 [in_i] 68 [in_i] MEDENT ([facility] ) 5'8" Body weight 273.00 [lb_av] 273.00 [lb_av] MEDEN T ([facility] ) Patient Treatment Plan of Care Planned Activity Planned Date Details Description Data Source (s) Clobetasol Propionate 0.0005 MG/MG Topical Ointment 01/13/20 12:00:00 AM EST eCW1 ([facility]) Benazepril hydrochloride 10 MG / Hydrochlorothiazide 1 2.5 MG Oral Tablet 01/13/2020 12:00:00 AM EST eCW1 ([facility]) pantoprazole 40 MG Delayed Release Oral Tablet 01/13/2020 12:00:00 AM EST eCW1 ([facility]) Ergocalciferol 00528 UNT Oral Capsule 01/13/2020 12:00:00 AM EST eCW1 ([facility])
--- OUTSIDE RECORDS SUMMARY | 2020-12-16 08:58 | CCD ---
Author Author [facility] Organization [facility] Address Unknown Phone Unavailable Care Team Providers Care Hand Suture Winder Name Role Phone Hung Saravia Unavailable PROBLEMS Type Condition ICD9-CM Code LPR02-WI Code Onset Dates Condition S tatus W/U Status Risk SNOMED Code Notes Problem Hypercholesterolemia E78.00 Active confirmed 76800954 Problem Abnormal mammogram of right breast R92.8 Activ e confirmed 065535140 Problem History of adenomatous polyp of colon Z86.010 Ac tive confirmed 207972789 Problem Thyroid nodule E04.1 Active confirmed 22876 5005 Problem Essential hypertension I10 Active confirmed 55751401 Problem Gastroesophageal reflux disease with esophagitis without hemorrhage K21.00 Active confirmed 008250647 ALLERGIES Allergen (clinical drug ingredient) Drug/Non Drug Allergy do cumented on EMR Reaction Allergy Type Onset Date Status Ditropan heart palps Drug Allergy Active sulfa flush Non Drug Allergy Active ENCOUNTERS from 1945 to 2020-11-10 Encounter Location Date Provider Diagnosis [address] [phone] [place] [address] Oct, Hung Saravia Hypercholesterolemia E78.00 IMMUNIZATIONS Vaccine Route Administration Date Status Moderna #1 dose COVID-19(given elsewhere) SARSCOV2 VAC 100MC G/0.5ML IM Unknown April 20, 2020 Administered Moderna #2 dose COVID-19(given elsewhere) SARSCOV2 VAC 100MC G/0.5ML IM Unknown May 18, 2020 Administered SOCIAL HISTORY Tobacco Use: Social History Observation Description Date Details (start date - stop date) Never Smoker Sex Assigned At : Social History Observation Description Sex Assigned At Unknown Tobacco Use: Question Answer Notes Are you a: never smoker REASON FOR REFERRAL No Information VITAL SIGNS No information MEDICATIONS Medication SIG (Take, Route, Frequency, Duration) Notes Start Da te End Date Status Vitamin D (Ergocalciferol) 1.25 MG (55457 UT) 1 capsule Orally w eekly Dec, Active Aspirin 81 81 MG 1 tablet Orally Once a day Not-Taking Clobetasol Propionate 0.05 % 1 application Externally Twice a da y Dec, Active Pantoprazole Sodium 40 MG 1 tablet Orally Once a day 2019 Active Benazepril-hydroCHLOROthiazide 10-12.5 MG 1 tablet Orally Once a day Dec, Active Atorvastatin Calcium 10 MG TAKE ONE TABLET BY MOUTH EV TY DAY AT BEDTIME Oral for 90 days Active Escitalopram Oxalate 10 MG 1 tablet Orally Once a day Active PROCEDURES No Information RESULTS No Results REASON FOR VISIT Refill - Atorvastatin MEDICAL (GENERAL) HISTORY Type Description Date Medical History high blood pressure Medical History acid reflux Medical History vitamin D deficiency Medical History high cholesterol Medical History anxiety Medical History adenomatous polyp 2015, Dr. Ros aMaria August Surgical History pulmonary embolus 2014 Surgical History right shoulder repair 2014 Surgical History gallbladder removal Surgical History fractured right wrist Surgical History right knee arthroscopy Hospitalization History pulmonary embolus, 6 mos of DOAC, xarelto aftr shoulder surgery. Hospitalization History gallbladder removal Hospitalization History childbirth X2 Hospitalization History chest pain Goals Section No Information Health Concerns No Information MEDICAL EQUIPMENT No Information MENTAL STATUS No Information FUNCTIONAL STATUS No Information ASSESSMENTS Encounter Date Diagnosis Assessment Notes Treatment Notes Treatm ent Clinical Notes Oct, Hypercholesterolemia (ICD-10 - E78.00) PLAN OF TREATMENT Medication Medication Name Sig Start Date Stop Date Atorvastatin Calcium 10 MG TAKE ONE TABLET BY MOUTH EV TY DAY AT BEDTIME Oral for 90 days Next Appt Details Provider Name:Hung Saravia, 2021-01-18 09 :30:00 AM, [place]as [place], , [place], [phone], Insurance Providers Payer Name Payer Address Payer Phone Insured Name Patient Relati onship to Insured Coverage Start Date Coverage End Date MEDICARE Part A and B [address] [facility] [id number] FOSTER MOORE [facility] [address] [facility] [phone] FOSTER MOORE
--- NOTE | 2020-12-16 11:00 | ROOR ---
Patient Name: Carol Narrow Procedure Date: 12/16/2020 10:15 AM Date of : 1945 Age: 75 Room: [facility] Gender: Female Note Status: Finalized Procedure: Colonoscopy Indications: Screening for colorectal malignant neoplasm Providers: Gilmar Orantes MD Referring MD: Hung Saravia MD Requesting Provider: Medicines: Monitored Anesthesia Care Complications: No immediate complications. Procedure: Pre-Anesthesia Assessment: - Prior to the procedure, a History and Physical was performed, and patient medications and allergies were reviewed. The patient is competent. The risks and benefits of the procedure and the sedation options and risks were discussed with the patient. All questions were answered and informed consent was obtained. Patient identification and proposed procedure were verified by the physician, the nurse and the anesthesiologist in the procedure room. Mental Status Examination: alert and oriented. Airway Examination: normal oropharyngeal airway and neck mobility. Respiratory Examination: clear to auscultation. CV Examination: normal. Prophylactic Antibiotics: The patient does not require prophylactic antibiotics. Prior Anticoagulants: The patient has taken no previous anticoagulant or antiplatelet agents. ASA Grade Assessment: II - A patient with mild systemic disease. After reviewing the risks and benefits, the patient was deemed in satisfactory condition to undergo the procedure. The anesthesia plan was to use monitored anesthesia care (MAC). Immediately prior to administration of medications, the patient was re-assessed for adequacy to receive sedatives. The heart rate, respiratory rate, oxygen saturations, blood pressure, adequacy of pulmonary ventilation, and response to care were monitored throughout the procedure. The physical status of the patient was re-assessed after the procedure. The Colonoscope was introduced through the anus and advanced to the terminal ileum, with identification of the appendiceal orifice and IC valve. The colonoscopy was performed without difficulty. The patient tolerated the procedure well. The quality of the bowel preparation was good. The terminal ileum, ileocecal valve, appendiceal orifice, and rectum were photographed. Scope insertion time was 2 minutes. Scope withdrawal time was 9 minutes. The total duration of the procedure was 12 minutes. Findings: The perianal and digital rectal examinations were normal. The terminal ileum appeared normal. Five sessile polyps were found in the recto-sigmoid colon, transverse colon and ascending colon. The polyps were 4 to 8 mm in size. These polyps were removed with a cold snare. Resection and retrieval were complete. Verification of patient identification for the specimen was done by the physician and nurse using the patient's name, date and medical record number. Estimated blood loss was minimal. Multiple small and large-mouthed diverticula were found from sigmoid to ascending colon. There was no evidence of diverticular bleeding. One large localized angioectasia with stigmata of recent bleeding was found in the cecum. For hemostasis, one hemostatic clip was successfully placed. There was no bleeding at the end of the procedure. Non-bleeding external and internal hemorrhoids were found during retroflexion. The hemorrhoids were medium-sized. Impression: - The examined portion of the ileum was normal. - Five 4 to 8 mm polyps at the recto-sigmoid colon, in the transverse colon and in the ascending colon, removed with a cold snare. Resected and retrieved. - Severe diverticulosis from sigmoid to ascending colon. There was no evidence of diverticular bleeding. - One recently bleeding colonic angioectasia. Clip was placed. - Non-bleeding external and internal hemorrhoids. Recommendation: - Patient has a contact number available for emergencies. The signs and symptoms of potential delayed complications were discussed with the patient. Return to normal activities tomorrow. Written discharge instructions were provided to the patient. - High fiber diet. - Continue present medications. - Await pathology results. - Repeat colonoscopy in 5-10 years for surveillance based on pathology results. - Telephone GI clinic for pathology results in 2 weeks. - Return to primary care physician. Procedure Code(s): --- Professional --- 95089, 59, Colonoscopy, flexible; with control of bleeding, any method 17905, Colonoscopy, flexible; with removal of tumor(s), polyp(s), or other lesion(s) by snare technique Diagnosis Code(s): --- Professional --- Z12.11, Encounter for screening for malignant neoplasm of colon K64.8, Other hemorrhoids K63.5, Polyp of colon K55.21, Angiodysplasia of colon with hemorrhage K57.30, Diverticulosis of large intestine without perforation or abscess without bleeding CPT copyright 2019 [employer]. All rights reserved. The codes documented in this report are preliminary and upon tile setter supervisor review may be revised to meet current compliance requirements. Gilmar Orantes MD Gilmar Orantes MD 12/16/2020 10:59:42 AM Electronically signed by Gilmar Orantes MD Number of Addenda: 0 Note Initiated On: 12/16/2020 10:15 AM Estimated Blood Loss: Estimated blood loss was minimal.
[2020-12-16 11:05] VITALS: BP 131/75
== END 2020-12-16 11:19 | disposition home or self-care (01) ==
LOC: M OPP 08:53
PROVIDERS: ATTEND Internal Medicine Gastroenterology
DX: Z12.11 Encounter for screening for malignant neoplasm of colon (principal); Z86.010 Personal history of colon polyps; D12.6 Benign neoplasm of colon, unspecified; K55.21 Angiodysplasia of colon with hemorrhage; K57.30 Diverticulosis of large intestine without perforation or abscess without bleeding; K64.8 Other hemorrhoids; Z79.82 Long term (current) use of aspirin; Z79.899 Other long term (current) drug therapy; Z88.2 Allergy status to sulfonamides; Z88.8 Allergy status to other drugs, medicaments and biological substances; Z80.1 Family history of malignant neoplasm of trachea, bronchus and lung; Z80.8 Family history of malignant neoplasm of other organs or systems

== ENCOUNTER → 2021-01-18 | Outpatient (REF) | payer MEDICARE, OTHER ==
[~2021-01-18] MED LIST changes: -LIDOCAINE 2% 100MG/5ML SDV (FOR ANES.) As Ordered ONE; -NS 1,000 ML IV ONE; -propofoL 200 MG/20 ML VIAL As Ordered ONE
[2021-01-18 16:22] LABS: HEMATOCRIT 44.3 % (36.0-47.0); HEMOGLOBIN 14.3 g/dl (12.0-15.5); MEAN CORPUSCULAR HEMOGLOBIN 31.3 pg (27.0-33.0); MEAN CORPUSCULAR HGB CONC 32.3 g/dl (32.0-36.5); MEAN CORPUSCULAR VOLUME 96.9 fl (80.0-96.0); PLATELET COUNT, AUTOMATED 218 10^3/uL (150-450); RED BLOOD COUNT 4.57 10^6/uL (4.00-5.40); WHITE BLOOD COUNT 7.8 10^3/uL (4.0-10.0)
[2021-01-18 17:03] LABS: ALBUMIN 3.4 GM/DL (3.2-5.2); ALT/SGPT 39 U/L (12-78); BILIRUBIN,TOTAL 0.7 MG/DL (0.2-1.0); BLOOD UREA NITROGEN 14 MG/DL (7-18); CALCIUM LEVEL 9.3 MG/DL (8.8-10.2); CARBON DIOXIDE LEVEL 35 MEQ/L (21-32); CHLORIDE LEVEL 103 MEQ/L (98-107); CHOLESTEROL LEVEL 166 MG/DL (<200); CHOLESTEROL RISK RATIO 2.862 (<5); CREATININE FOR GFR 0.79 MG/DL (0.55-1.30); FREE T4 0.96 NG/DL (0.76-1.46); GLOMERULAR FILTRATION RATE > 60.0 (>39); GLUCOSE, FASTING 97 MG/DL (70-100); HDL CHOLESTEROL 58 MG/DL (>40); LDL CHOLESTEROL 85 MG/DL (<100); NON-HDL-C 108 MG/DL; POTASSIUM SERUM 4.6 MEQ/L (3.5-5.1); SODIUM LEVEL 142 MEQ/L (136-145); TOTAL PROTEIN 7.2 GM/DL (6.4-8.2); TRIGLYCERIDES LEVEL 115 MG/DL (<150)
[2021-01-20 11:03] LABS: ALBUMIN 3.84 GM/DL (3.29-5.55)
[2021-01-20 11:04] LABS: ALBUMIN % 53.3 % (55.8-66.1); ALPHA-1-GLOBULIN % 4.7 % (2.9-4.9); ALPHA-1-GLOBULINS 0.34 GM/DL (0.17-0.41); ALPHA-2-GLOBULINS 0.98 GM/DL (0.42-0.99); ALPHA-2-GLOBULINS % 13.6 % (7.1-11.8); BETA-1-GLOBULINS 0.55 GM/DL (0.28-0.60); BETA-1-GLOBULINS % 7.7 % (4.7-7.2); BETA-2-GLOBULINS 0.42 GM/DL (0.19-0.55); BETA-2-GLOBULINS % 5.8 % (3.2-6.5); GAMMA GLOBULIN % 14.9 % (11.1-18.8); GAMMA GLOBULINS 1.07 GM/DL (0.65-1.58)
== END ==
LOC: M SFHCCLAY 10:59
PROVIDERS: ATTEND Family Medicine
DX: E78.00 Pure hypercholesterolemia, unspecified (principal); I10 Essential (primary) hypertension; E04.1 Nontoxic single thyroid nodule; D89.2 Hypergammaglobulinemia, unspecified
CPT/HCPCS: 80053; 80061; 84165; 84439; 84443; 85027; G0463

== ENCOUNTER → 2021-08-25 | Outpatient (REF) | payer MEDICARE, OTHER ==
[~2021-08-25] MED LIST changes: -CITA10TA5; +CITA10TA7
[2021-08-25 16:11] LABS: BLOOD UREA NITROGEN 14 MG/DL (7-18); CALCIUM LEVEL 9.5 MG/DL (8.8-10.2); CARBON DIOXIDE LEVEL 32 MEQ/L (21-32); CHLORIDE LEVEL 102 MEQ/L (98-107); CREATININE FOR GFR 0.94 MG/DL (0.55-1.30); GLOMERULAR FILTRATION RATE > 60.0 (>39); GLUCOSE, FASTING 113 MG/DL (70-100); POTASSIUM SERUM 3.8 MEQ/L (3.5-5.1); SODIUM LEVEL 139 MEQ/L (136-145)
== END ==
LOC: M SFHCCLAY 10:41
PROVIDERS: ATTEND Family Medicine
DX: I10 Essential (primary) hypertension (principal)

== ENCOUNTER → 2021-09-12 | Outpatient (CLI) | payer MEDICARE, BC, OTHER | LOC: M WHC 14:21 | PROVIDERS: ATTEND Family Medicine | DX: Z12.31 Encounter for screening mammogram for malignant neoplasm of breast (principal) ==

== ENCOUNTER 2021-11-02 08:03 | Inpatient (IN) | payer MEDICARE, BC, OTHER ==
[~2021-11-02] VITALS: Ht 170.2 cm; Wt 139.2 kg
[~2021-11-02 08:03] MED LIST changes: -ERGO500029; +ERGO500029 PO; -PANT40TA29; +PANT40TA29 PO
[2021-11-02] MEDS ORDERED: CHLO125TA PO (08:15)
[2021-11-02] MEDS ORDERED: CIPR750T2 (08:15)
[2021-11-02] MEDS ORDERED: CIPR500T39 PO (08:15)
[2021-11-02] MEDS ORDERED: ONDA-83 PO (08:15)
[2021-11-02] MEDS ORDERED: PERC5TAB12 (08:15)
[2021-11-02] MEDS ORDERED: VALS1TAB67 PO (08:15)
[2021-11-02] MEDS ORDERED: KETOROLAC 30 MG/ML 1ML VIAL IV ONE (08:55)
[2021-11-02 09:29] LABS: HEMATOCRIT 42.2 % (36.0-47.0); MEAN CORPUSCULAR HGB CONC 33.2 g/dl (32.0-36.5); MEAN CORPUSCULAR VOLUME 96.3 fl (80.0-96.0); PLATELET COUNT, AUTOMATED 177 10^3/uL (150-450); RED BLOOD COUNT 4.38 10^6/uL (4.00-5.40); WHITE BLOOD COUNT 10.1 10^3/uL (4.0-10.0)
[2021-11-02 10:04] LABS: ALBUMIN 3.5 GM/DL (3.2-5.2); BILIRUBIN,TOTAL 0.8 MG/DL (0.2-1.0); CALCIUM LEVEL 9.6 MG/DL (8.8-10.2); CREATININE FOR GFR 1.12 MG/DL (0.55-1.30); GLOMERULAR FILTRATION RATE 50.6 (>39); POTASSIUM SERUM 4.2 MEQ/L (3.5-5.1); TOTAL PROTEIN 7.5 GM/DL (6.4-8.2)
[2021-11-02] MEDS ORDERED: ISOVUE-370 76% 100ML VIAL As Ordered ONE ×2 (10:26→11:04)
[2021-11-02 12:29] LABS: RSV AMPLIFICATION NEGATIVE (NEGATIVE)
[2021-11-02 12:42] LABS: INR 1.05; PROTHROMBIN TIME 14.1 SECONDS (12.7-14.5)
[2021-11-02 12:43] LABS: PARTIAL THROMBOPLASTIN TIME 32.7 SECONDS (25.9-37.0)
[2021-11-02] MEDS ORDERED: MORPHINE 4 MG/ML 1ML VIAL/SYRINGE IV ONE (13:10)
[2021-11-02] MEDS ORDERED: ACETAMINOPHEN 500 MG TAB PO ONE (13:20)
[2021-11-02] MEDS ORDERED: APIXABAN 5 MG TAB (ELIQUIS) PO ONE (13:20)
[2021-11-02] MEDS ORDERED: MORPHINE 30 MG TAB **MSIR PO ONE ×2 (13:20→23:00)
[2021-11-02] MEDS ORDERED: amLODIPine 5 MG TAB PO ONE (13:25)
[2021-11-02] MEDS ORDERED: LEXA1TAB PO (14:07)
[2021-11-02] MEDS ORDERED: ATOR40TA75 PO (14:07)
[2021-11-02] MEDS ORDERED: LORA-674 PO (14:07)
[2021-11-02] MEDS ORDERED: HOME MED LIST COMPLETE! XX SCH (14:10)
[2021-11-02] MEDS: cefTRIAXone SOD 1 GM in D5W MINI-BAG PLUS 50 ML IV SCH (14:14)
[2021-11-02] MEDS ORDERED: ISOSORBIDE DIN (ISORDIL) 10MG TAB PO PRN (15:05)
[2021-11-02] MEDS ORDERED: LORATADINE 10 MG TAB PO PRN (15:05)
[2021-11-02] MEDS ORDERED: **hydrALAZINE** 10 MG TAB PO PRN (15:05)
[2021-11-02 16:40] VITALS: BP 154/55
[2021-11-02] MEDS: ATORVASTATIN 20 MG TAB PO SCH (16:50)
[2021-11-02] MEDS: ASPIRIN 81 MG CHEW TABLET PO SCH (16:50)
[2021-11-02] MEDS: PANTOPRAZOLE 40MG TAB (PROTONIX) PO SCH (16:50)
[2021-11-02] MEDS: ESCITALOPRAM OXALATE 10 MG TAB (LEXAPRO) PO SCH (16:50)
[2021-11-02] MEDS: NS 1,000 ML IV SCH (16:51)
[2021-11-02] MEDS: KETOROLAC 30 MG/ML 1ML VIAL IV SCH ×2 (16:51→23:29)
[2021-11-02] MEDS ORDERED: ISOSORBIDE DIN (ISORDIL) 10MG TAB PO ONE (17:40)
[2021-11-02] MEDS: ONDANSETRON 4MG TAB PO PRN (20:32)
[2021-11-02 22:00] VITALS: BP 128/73
[2021-11-02] MEDS: amLODIPine 5 MG TAB PO SCH (23:27)
[2021-11-02] MEDS: OMEPRAZOLE 20MG CAP PO SCH (23:27)
[2021-11-02] MEDS: APIXABAN 5 MG TAB (ELIQUIS) PO SCH (23:28)
[2021-11-02] MEDS: ACETAMINOPHEN 500 MG TAB PO SCH (23:28)
[2021-11-03] MEDS: KETOROLAC 30 MG/ML 1ML VIAL IV SCH ×4 (02:41→23:26)
[2021-11-03] MEDS: NS 1,000 ML IV SCH (05:37)
[2021-11-03] MEDS: ACETAMINOPHEN 500 MG TAB PO SCH ×3 (05:38→21:15)
[2021-11-03 05:50] LABS: HEMATOCRIT 35.3 % (36.0-47.0); HEMOGLOBIN 12.4 g/dl (12.0-15.5); MEAN CORPUSCULAR HEMOGLOBIN 34.3 pg (27.0-33.0); MEAN CORPUSCULAR HGB CONC 35.1 g/dl (32.0-36.5); MEAN CORPUSCULAR VOLUME 97.8 fl (80.0-96.0); PLATELET COUNT, AUTOMATED 148 10^3/uL (150-450); RED BLOOD COUNT 3.61 10^6/uL (4.00-5.40); WHITE BLOOD COUNT 8.5 10^3/uL (4.0-10.0)
[2021-11-03 06:00] VITALS: BP 146/57
[2021-11-03 06:21] LABS: BLOOD UREA NITROGEN 23 MG/DL (7-18); CALCIUM LEVEL 8.6 MG/DL (8.8-10.2); CARBON DIOXIDE LEVEL 28 MEQ/L (21-32); CHLORIDE LEVEL 107 MEQ/L (98-107); CREATININE FOR GFR 0.91 MG/DL (0.55-1.30); GLOMERULAR FILTRATION RATE > 60.0 (>39); GLUCOSE, FASTING 91 MG/DL (70-100); POTASSIUM SERUM 4.2 MEQ/L (3.5-5.1); SODIUM LEVEL 141 MEQ/L (136-145)
[2021-11-03] MEDS ORDERED: ISOVUE-370 76% 100ML VIAL As Ordered ONE (07:06)
[2021-11-03] MEDS ORDERED: HYDR10TAB PO (07:39)
[2021-11-03] MEDS ORDERED: ACET-683 PO (07:39)
[2021-11-03] MEDS ORDERED: ISOS10TA3 PO (07:39)
[2021-11-03] MEDS ORDERED: ELIQ5TAB PO (07:39)
[2021-11-03] MEDS ORDERED: SENO8.6T10 PO (07:44)
[2021-11-03] MEDS ORDERED: MSIR30TA PO (07:44)
[2021-11-03] MEDS ORDERED: MORPHINE 30 MG TAB **MSIR PO ONE ×2 (08:00→11:00)
[2021-11-03] MEDS ORDERED: NS 1,000 ML IV SCH ×2 (08:00→13:05)
[2021-11-03] MEDS ORDERED: DEXTROSE 50% 50 ML SYRINGE IV PRN (08:00)
[2021-11-03] MEDS ORDERED: GLUCAGON INJ 1MG VIAL SC PRN (08:00)
[2021-11-03] MEDS ORDERED: GLUCOSE 4GM CHEW TABLET PO PRN (08:00)
[2021-11-03 09:15] LABS: ALBUMIN 2.9 GM/DL (3.2-5.2); BILIRUBIN,DIRECT 0.2 MG/DL (0.0-0.2); BILIRUBIN,TOTAL 0.6 MG/DL (0.2-1.0); MAGNESIUM LEVEL 2.2 MG/DL (1.8-2.4); POTASSIUM SERUM 3.5 MEQ/L (3.5-5.1)
[2021-11-03] MEDS: PANTOPRAZOLE 40MG TAB (PROTONIX) PO SCH (09:34)
[2021-11-03] MEDS: APIXABAN 5 MG TAB (ELIQUIS) PO SCH (09:34)
[2021-11-03] MEDS: ASPIRIN 81 MG CHEW TABLET PO SCH (09:34)
[2021-11-03] MEDS: ESCITALOPRAM OXALATE 10 MG TAB (LEXAPRO) PO SCH (09:34)
[2021-11-03] MEDS: ATORVASTATIN 20 MG TAB PO SCH (09:34)
[2021-11-03] MEDS: amLODIPine 5 MG TAB PO SCH ×2 (09:35→21:14)
[2021-11-03] MEDS: LIDOCAINE 5% (LIDODERM) PATCH TD SCH (11:07)
[2021-11-03] MEDS: ONDANSETRON 4MG TAB PO PRN (11:08)
[2021-11-03 12:24] LABS: DRVV SCREEN 20.8 SEC
[2021-11-03] MEDS ORDERED: HEPARIN SOD (PORCINE) 5000UNITS/ML 1ML VIAL/SYRINGE IV ONE (12:50)
[2021-11-03 13:06] LABS: PTT LUPUS TYPE ANTICOAG SCREEN 0.6 (0-1.2)
[2021-11-03 13:37] LABS: HEMATOCRIT 36.7 % (36.0-47.0); HEMOGLOBIN 11.9 g/dl (12.0-15.5); MEAN CORPUSCULAR HEMOGLOBIN 31.7 pg (27.0-33.0); MEAN CORPUSCULAR HGB CONC 32.4 g/dl (32.0-36.5); MEAN CORPUSCULAR VOLUME 97.9 fl (80.0-96.0); PLATELET COUNT, AUTOMATED 126 10^3/uL (150-450); RED BLOOD COUNT 3.75 10^6/uL (4.00-5.40)
[2021-11-03] MEDS: cefTRIAXone SOD 1 GM in D5W MINI-BAG PLUS 50 ML IV SCH (13:50)
[2021-11-03 14:00] VITALS: BP 162/64
[2021-11-03 15:05] VITALS: BP 146/70
[2021-11-03] MEDS ORDERED: CALCIUM CARBONATE 500 MG CHEW U/D PO PRN (19:30)
[2021-11-03] MEDS: ONDANSETRON 4MG 2ML VIAL IV PRN (19:39)
[2021-11-03 20:48] VITALS: BP 157/65
[2021-11-03] MEDS ORDERED: HEPARIN SOD (PORCINE) 5000UNITS/ML 1ML VIAL/SYRINGE IV PRN (21:00)
[2021-11-03] MEDS: HEPARIN DRIP 25,000 UNITS in IV 1 EA IV SCH (21:11)
[2021-11-03] MEDS: OMEPRAZOLE 20MG CAP PO SCH (21:14)
[2021-11-03] MEDS: **NOTE PATIENT COMMENT** MISC XX SCH (21:15)
[2021-11-04 03:39] LABS: HEMATOCRIT 34.7 % (36.0-47.0); HEMOGLOBIN 11.3 g/dl (12.0-15.5); MEAN CORPUSCULAR HEMOGLOBIN 31.6 pg (27.0-33.0); MEAN CORPUSCULAR HGB CONC 32.6 g/dl (32.0-36.5); MEAN CORPUSCULAR VOLUME 96.9 fl (80.0-96.0); PLATELET COUNT, AUTOMATED 131 10^3/uL (150-450); RED BLOOD COUNT 3.58 10^6/uL (4.00-5.40); WHITE BLOOD COUNT 7.1 10^3/uL (4.0-10.0)
[2021-11-04 04:00] VITALS: BP 158/76
[2021-11-04] MEDS: KETOROLAC 30 MG/ML 1ML VIAL IV SCH ×4 (04:00→21:29)
[2021-11-04 04:20] LABS: BLOOD UREA NITROGEN 16 MG/DL (7-18); CALCIUM LEVEL 8.3 MG/DL (8.8-10.2); CARBON DIOXIDE LEVEL 30 MEQ/L (21-32); CHLORIDE LEVEL 105 MEQ/L (98-107); CREATININE FOR GFR 0.78 MG/DL (0.55-1.30); GLOMERULAR FILTRATION RATE > 60.0 (>39); GLUCOSE, FASTING 88 MG/DL (70-100); POTASSIUM SERUM 3.5 MEQ/L (3.5-5.1); SODIUM LEVEL 140 MEQ/L (136-145)
[2021-11-04] MEDS: ACETAMINOPHEN 500 MG TAB PO SCH ×3 (07:00→21:28)
[2021-11-04] MEDS: ONDANSETRON 4MG 2ML VIAL IV PRN (07:44)
[2021-11-04] MEDS ORDERED: ISOSORBIDE DIN (ISORDIL) 10MG TAB PO ONE (08:00)
[2021-11-04] MEDS ORDERED: **hydrALAZINE** 10 MG TAB PO ONE (08:00)
[2021-11-04] MEDS: PANTOPRAZOLE 40MG TAB (PROTONIX) PO SCH (09:14)
[2021-11-04] MEDS: ESCITALOPRAM OXALATE 10 MG TAB (LEXAPRO) PO SCH (09:14)
[2021-11-04] MEDS: ASPIRIN 81 MG CHEW TABLET PO SCH (09:14)
[2021-11-04] MEDS: ATORVASTATIN 20 MG TAB PO SCH (09:14)
[2021-11-04] MEDS: LIDOCAINE 5% (LIDODERM) PATCH TD SCH (09:15)
[2021-11-04] MEDS: amLODIPine 5 MG TAB PO SCH ×2 (09:17→20:25)
[2021-11-04] MEDS ORDERED: PROMETHAZINE 25MG/ML 1ML VIAL IV ONE (10:05)
[2021-11-04 10:46] LABS: NT-PRO BNP 1206 PG/ML (<125)
[2021-11-04] MEDS: **hydrALAZINE** 10 MG TAB PO SCH ×2 (12:00→20:26)
[2021-11-04 14:00] VITALS: BP 142/58
[2021-11-04] MEDS: cefTRIAXone SOD 1 GM in D5W MINI-BAG PLUS 50 ML IV SCH (14:16)
[2021-11-04] MEDS ORDERED: FUROSEMIDE 20MG/2ML VIAL (J1940) IV ONE (15:45)
[2021-11-04] MEDS: METOCLOPRAMIDE INJ 10MG/2ML VIAL (J2765 PER 1) IV SCH (16:54)
[2021-11-04] MEDS: SUCRALFATE SUSP 1GM/10ML UD PO SCH ×2 (16:54→20:25)
[2021-11-04] MEDS: HEPARIN DRIP 25,000 UNITS in IV 1 EA IV SCH (18:03)
[2021-11-04 19:53] VITALS: BP 164/56
[2021-11-04] MEDS: **NOTE PATIENT COMMENT** MISC XX SCH (20:27)
[2021-11-05] VITALS (9 sets, daily range): BP systolic 148–230; BP diastolic 52–82; O2SAT 88–93
[2021-11-05] MEDS: KETOROLAC 30 MG/ML 1ML VIAL IV SCH ×4 (04:03→22:21)
[2021-11-05] MEDS: **hydrALAZINE** 10 MG TAB PO SCH ×2 (04:04→23:45)
[2021-11-05] MEDS: ACETAMINOPHEN 500 MG TAB PO SCH ×3 (05:26→22:20)
[2021-11-05 06:19] LABS: HEMATOCRIT 33.9 % (36.0-47.0); MEAN CORPUSCULAR HEMOGLOBIN 31.3 pg (27.0-33.0); MEAN CORPUSCULAR HGB CONC 32.4 g/dl (32.0-36.5); MEAN CORPUSCULAR VOLUME 96.6 fl (80.0-96.0); PLATELET COUNT, AUTOMATED 120 10^3/uL (150-450); RED BLOOD COUNT 3.51 10^6/uL (4.00-5.40); WHITE BLOOD COUNT 6.1 10^3/uL (4.0-10.0)
[2021-11-05 07:25] LABS: BLOOD UREA NITROGEN 14 MG/DL (7-18); CALCIUM LEVEL 8.5 MG/DL (8.8-10.2); CARBON DIOXIDE LEVEL 31 MEQ/L (21-32); CHLORIDE LEVEL 104 MEQ/L (98-107); CREATININE FOR GFR 0.78 MG/DL (0.55-1.30); GLOMERULAR FILTRATION RATE > 60.0 (>39); GLUCOSE, FASTING 87 MG/DL (70-100); POTASSIUM SERUM 3.3 MEQ/L (3.5-5.1); SODIUM LEVEL 138 MEQ/L (136-145)
[2021-11-05] MEDS ORDERED: NITROGLYCERIN 0.4 MG SUBL TABLET SL STA (07:33)
[2021-11-05] MEDS ORDERED: NITROGLYCERIN 0.4 MG SUBL TABLET As Ordered ONE (07:35)
[2021-11-05 09:10] LABS: HEMATOCRIT 36.6 % (36.0-47.0)
[2021-11-05] MEDS: SUCRALFATE SUSP 1GM/10ML UD PO SCH ×4 (09:38→20:49)
[2021-11-05] MEDS: ATORVASTATIN 20 MG TAB PO SCH (09:39)
[2021-11-05] MEDS: METOCLOPRAMIDE INJ 10MG/2ML VIAL (J2765 PER 1) IV SCH ×3 (09:39→18:24)
[2021-11-05] MEDS: ASPIRIN 81 MG CHEW TABLET PO SCH (09:40)
[2021-11-05] MEDS: VALSARTAN 80 MG TAB (DIOVAN) PO SCH (09:40)
[2021-11-05] MEDS: LIDOCAINE 5% (LIDODERM) PATCH TD SCH (09:41)
[2021-11-05] MEDS: ESCITALOPRAM OXALATE 10 MG TAB (LEXAPRO) PO SCH (09:41)
[2021-11-05] MEDS ORDERED: FUROSEMIDE 40MG/4ML VIAL (J1940) IV ONE (13:00)
[2021-11-05 13:25] LABS: CK-MB VALUE MASS 2.3 NG/ML (<3.6); MB/CK RELATIVE INDEX 0.65 (< OR =4)
[2021-11-05] MEDS ORDERED: **hydrALAZINE** 10 MG TAB PO SCH (14:00)
[2021-11-05] MEDS ORDERED: POTASSIUM CHLORIDE 10MEQ SR TABLET PO ONE (15:10)
[2021-11-05 15:53] LABS: MAGNESIUM LEVEL 1.9 MG/DL (1.8-2.4); POTASSIUM SERUM 3.2 MEQ/L (3.5-5.1)
[2021-11-05] MEDS ORDERED: NALOXONE INJ 0.4MG/1ML VIAL (J2310 PER 1MG) IV PRN (16:20)
[2021-11-05] MEDS: NITROGLYCERIN 2% OINT 1 GM *U/D* PKT TOP SCH (16:29)
[2021-11-05] MEDS ORDERED: cloNIDine 0.1MG TABLET PO ONE ×2 (16:45→17:30)
[2021-11-05] MEDS ORDERED: HYDROMORPHONE HCL 0.5 MG/ 0.5 ML SYRINGE (J1170 PER 1) IV ONE (16:45)
[2021-11-05] MEDS ORDERED: **hydrALAZINE** 10 MG TAB PO ONE (18:00)
[2021-11-05] MEDS: HEPARIN DRIP 25,000 UNITS in IV 1 EA IV SCH (18:23)
[2021-11-05] MEDS: PERCOCET 5MG/325MG TAB PO PRN (19:40)
[2021-11-05 20:26] LABS: BLOOD UREA NITROGEN 11 MG/DL (7-18); CALCIUM LEVEL 8.6 MG/DL (8.8-10.2); CARBON DIOXIDE LEVEL 33 MEQ/L (21-32); CHLORIDE LEVEL 101 MEQ/L (98-107); CREATININE FOR GFR 0.81 MG/DL (0.55-1.30); GLOMERULAR FILTRATION RATE > 60.0 (>39); GLUCOSE, FASTING 123 MG/DL (70-100); POTASSIUM SERUM 3.3 MEQ/L (3.5-5.1); SODIUM LEVEL 138 MEQ/L (136-145)
[2021-11-05] MEDS: **NOTE PATIENT COMMENT** MISC XX SCH (20:49)
[2021-11-05] MEDS: POTASSIUM CHLORIDE 10MEQ SR TABLET PO SCH (20:49)
[2021-11-06] VITALS (7 sets, daily range): BP systolic 120–144; BP diastolic 60–64; O2SAT 93
[2021-11-06] MEDS ORDERED: **hydrALAZINE HCL** 25 MG TAB PO SCH
[2021-11-06] MEDS: KETOROLAC 30 MG/ML 1ML VIAL IV SCH ×4 (04:23→22:04)
[2021-11-06] MEDS: NITROGLYCERIN 2% OINT 1 GM *U/D* PKT TOP SCH (04:24)
[2021-11-06] MEDS: **hydrALAZINE** 10 MG TAB PO SCH (05:47)
[2021-11-06] MEDS: ACETAMINOPHEN 500 MG TAB PO SCH ×3 (05:48→22:05)
[2021-11-06 06:19] LABS: HEMATOCRIT 32.8 % (36.0-47.0); HEMOGLOBIN 10.9 g/dl (12.0-15.5); MEAN CORPUSCULAR HEMOGLOBIN 31.9 pg (27.0-33.0); MEAN CORPUSCULAR HGB CONC 33.2 g/dl (32.0-36.5); MEAN CORPUSCULAR VOLUME 95.9 fl (80.0-96.0); PLATELET COUNT, AUTOMATED 136 10^3/uL (150-450); RED BLOOD COUNT 3.42 10^6/uL (4.00-5.40); WHITE BLOOD COUNT 6.3 10^3/uL (4.0-10.0)
[2021-11-06 07:01] LABS: BLOOD UREA NITROGEN 12 MG/DL (7-18); CALCIUM LEVEL 8.5 MG/DL (8.8-10.2); CARBON DIOXIDE LEVEL 33 MEQ/L (21-32); CHLORIDE LEVEL 104 MEQ/L (98-107); CREATININE FOR GFR 0.83 MG/DL (0.55-1.30); GLOMERULAR FILTRATION RATE > 60.0 (>39); GLUCOSE, FASTING 93 MG/DL (70-100); POTASSIUM SERUM 3.6 MEQ/L (3.5-5.1); SODIUM LEVEL 141 MEQ/L (136-145)
[2021-11-06] MEDS: LIDOCAINE 5% (LIDODERM) PATCH TD SCH (08:20)
[2021-11-06] MEDS: SUCRALFATE SUSP 1GM/10ML UD PO SCH ×4 (08:20→22:04)
[2021-11-06] MEDS: ATORVASTATIN 20 MG TAB PO SCH (08:21)
[2021-11-06] MEDS: ESCITALOPRAM OXALATE 10 MG TAB (LEXAPRO) PO SCH (08:21)
[2021-11-06] MEDS: ASPIRIN 81 MG CHEW TABLET PO SCH (08:21)
[2021-11-06] MEDS: POTASSIUM CHLORIDE 10MEQ SR TABLET PO SCH ×2 (08:21→22:04)
[2021-11-06] MEDS: PERCOCET 5MG/325MG TAB PO PRN ×2 (08:22→16:02)
[2021-11-06] MEDS: METOCLOPRAMIDE INJ 10MG/2ML VIAL (J2765 PER 1) IV SCH ×3 (08:23→17:31)
[2021-11-06 08:27] LABS: CK-MB VALUE MASS 3.4 NG/ML (<3.6); MB/CK RELATIVE INDEX 0.66 (< OR =4)
[2021-11-06] MEDS: VALSARTAN 80 MG TAB (DIOVAN) PO SCH (08:28)
[2021-11-06] MEDS ORDERED: **hydrALAZINE HCL** 25 MG TAB PO ONE (09:00)
[2021-11-06] MEDS ORDERED: cloNIDine 0.1MG TABLET PO ONE (09:00)
[2021-11-06] MEDS: **hydrALAZINE** 50 MG TAB PO SCH ×2 (12:55→17:31)
[2021-11-06 13:27] LABS: HEMATOCRIT 34.3 % (36.0-47.0); HEMOGLOBIN 11.2 g/dl (12.0-15.5); MEAN CORPUSCULAR HEMOGLOBIN 31.6 pg (27.0-33.0); MEAN CORPUSCULAR HGB CONC 32.7 g/dl (32.0-36.5); MEAN CORPUSCULAR VOLUME 96.9 fl (80.0-96.0); PLATELET COUNT, AUTOMATED 143 10^3/uL (150-450); RED BLOOD COUNT 3.54 10^6/uL (4.00-5.40); WHITE BLOOD COUNT 6.2 10^3/uL (4.0-10.0)
[2021-11-06] MEDS: HEPARIN DRIP 25,000 UNITS in IV 1 EA IV SCH (19:28)
[2021-11-06] MEDS: **NOTE PATIENT COMMENT** MISC XX SCH (22:05)
[2021-11-07] VITALS (8 sets, daily range): BP systolic 108–210; BP diastolic 52–88; O2SAT 92
[2021-11-07] MEDS: ACETAMINOPHEN 500 MG TAB PO SCH ×3 (05:59→21:18)
[2021-11-07] MEDS: **hydrALAZINE** 50 MG TAB PO SCH ×2 (06:00)
[2021-11-07] MEDS: KETOROLAC 30 MG/ML 1ML VIAL IV SCH ×2 (06:00→10:22)
[2021-11-07 06:17] LABS: HEMATOCRIT 33.9 % (36.0-47.0); HEMOGLOBIN 11.1 g/dl (12.0-15.5); MEAN CORPUSCULAR HEMOGLOBIN 32.1 pg (27.0-33.0); MEAN CORPUSCULAR HGB CONC 32.7 g/dl (32.0-36.5); PLATELET COUNT, AUTOMATED 140 10^3/uL (150-450); RED BLOOD COUNT 3.46 10^6/uL (4.00-5.40); WHITE BLOOD COUNT 6.5 10^3/uL (4.0-10.0)
[2021-11-07 06:47] LABS: BLOOD UREA NITROGEN 19 MG/DL (7-18); CALCIUM LEVEL 8.7 MG/DL (8.8-10.2); CARBON DIOXIDE LEVEL 31 MEQ/L (21-32); CHLORIDE LEVEL 106 MEQ/L (98-107); CREATININE FOR GFR 0.83 MG/DL (0.55-1.30); GLOMERULAR FILTRATION RATE > 60.0 (>39); GLUCOSE, FASTING 104 MG/DL (70-100); POTASSIUM SERUM 3.8 MEQ/L (3.5-5.1); SODIUM LEVEL 141 MEQ/L (136-145)
[2021-11-07] MEDS: SUCRALFATE SUSP 1GM/10ML UD PO SCH (07:30)
[2021-11-07] MEDS: METOCLOPRAMIDE INJ 10MG/2ML VIAL (J2765 PER 1) IV SCH ×3 (07:30→16:54)
[2021-11-07] MEDS: POTASSIUM CHLORIDE 10MEQ SR TABLET PO SCH ×2 (08:36→21:17)
[2021-11-07] MEDS: ASPIRIN 81 MG CHEW TABLET PO SCH (08:37)
[2021-11-07] MEDS: ESCITALOPRAM OXALATE 10 MG TAB (LEXAPRO) PO SCH (08:38)
[2021-11-07] MEDS: LIDOCAINE 5% (LIDODERM) PATCH TD SCH (08:38)
[2021-11-07] MEDS: ATORVASTATIN 20 MG TAB PO SCH (08:38)
[2021-11-07] MEDS: VALSARTAN 80 MG TAB (DIOVAN) PO SCH (08:48)
[2021-11-07] MEDS: PERCOCET 5MG/325MG TAB PO PRN ×2 (08:51→18:36)
[2021-11-07] MEDS ORDERED: VALSARTAN 80 MG TAB (DIOVAN) PO ONE (08:55)
[2021-11-07] MEDS: HEPARIN DRIP 25,000 UNITS in IV 1 EA IV SCH ×3 (11:41→21:23)
[2021-11-07] MEDS: SUCRALFATE 1 GM TAB PO SCH ×3 (12:15→21:16)
[2021-11-07] MEDS ORDERED: MORPHINE 2 MG/ML 1ML VIAL IV ONE (16:15)
[2021-11-07] MEDS ORDERED: GI COCKTAIL 50ML BTL(HYOSCYAMINE/MAALOX/LIDOCAINE VISCOUS)(1:3:1) PO ONE (16:15)
[2021-11-07] MEDS ORDERED: NITROGLYCERIN 0.4 MG SUBL TABLET SL STA (16:15)
[2021-11-07] MEDS ORDERED: cloNIDine 0.1MG TABLET PO ONE (16:20)
[2021-11-07] MEDS: NITROGLYCERIN 0.4 MG SUBL TABLET SL PRN ×4 (16:33→18:41)
[2021-11-07 17:28] LABS: CK-MB VALUE MASS 1.2 NG/ML (<3.6); MB/CK RELATIVE INDEX 0.41 (< OR =4)
[2021-11-07] MEDS: NITROGLYCERIN 2% OINT 1 GM *U/D* PKT TOP SCH (17:32)
[2021-11-07] MEDS ORDERED: HYDROMORPHONE HCL 0.5 MG/ 0.5 ML SYRINGE (J1170 PER 1) IV ONE (18:40)
[2021-11-07] MEDS ORDERED: MORPHINE 2 MG/ML 1ML VIAL IV PRN (18:45)
[2021-11-07] MEDS ORDERED: **hydrALAZINE** 10 MG TAB PO ONE (18:45)
[2021-11-07] MEDS ORDERED: NITROGLYCERIN 2% OINT 1 GM *U/D* PKT TOP SCH (21:00)
[2021-11-07] MEDS: **NOTE PATIENT COMMENT** MISC XX SCH (21:18)
[2021-11-07] MEDS: **hydrALAZINE HCL** 25 MG TAB PO SCH (21:28)
[2021-11-07 22:58] LABS: CK-MB VALUE MASS < 1.0 NG/ML (<3.6); CPK CREATINE PHOSPHOKINASE 218 U/L (26-192); MB/CK RELATIVE INDEX 0.46 (< OR =4)
[2021-11-08] VITALS (8 sets, daily range): BP systolic 130–162; BP diastolic 60–84; O2SAT 94
[2021-11-08] MEDS: **hydrALAZINE HCL** 25 MG TAB PO SCH ×2 (04:09→10:19)
[2021-11-08 04:33] LABS: HEMATOCRIT 34.2 % (36.0-47.0); HEMOGLOBIN 11.1 g/dl (12.0-15.5); MEAN CORPUSCULAR HEMOGLOBIN 31.4 pg (27.0-33.0); MEAN CORPUSCULAR HGB CONC 32.5 g/dl (32.0-36.5); MEAN CORPUSCULAR VOLUME 96.9 fl (80.0-96.0); PLATELET COUNT, AUTOMATED 147 10^3/uL (150-450); RED BLOOD COUNT 3.53 10^6/uL (4.00-5.40); WHITE BLOOD COUNT 6.8 10^3/uL (4.0-10.0)
[2021-11-08 05:01] LABS: BLOOD UREA NITROGEN 21 MG/DL (7-18); CALCIUM LEVEL 9.2 MG/DL (8.8-10.2); CARBON DIOXIDE LEVEL 28 MEQ/L (21-32); CHLORIDE LEVEL 107 MEQ/L (98-107); CREATININE FOR GFR 0.66 MG/DL (0.55-1.30); GLOMERULAR FILTRATION RATE > 60.0 (>39); GLUCOSE, FASTING 94 MG/DL (70-100); POTASSIUM SERUM 4.5 MEQ/L (3.5-5.1); SODIUM LEVEL 139 MEQ/L (136-145)
[2021-11-08] MEDS: ACETAMINOPHEN 500 MG TAB PO SCH ×2 (05:04→13:49)
[2021-11-08 05:07] LABS: CK-MB VALUE MASS < 1.0 NG/ML (<3.6); CPK CREATINE PHOSPHOKINASE 180 U/L (26-192); MB/CK RELATIVE INDEX 0.56 (< OR =4)
[2021-11-08] MEDS: NITROGLYCERIN 2% OINT 1 GM *U/D* PKT TOP SCH (06:34)
[2021-11-08] MEDS: SUCRALFATE 1 GM TAB PO SCH ×2 (08:07→12:32)
[2021-11-08] MEDS: ESCITALOPRAM OXALATE 10 MG TAB (LEXAPRO) PO SCH (08:08)
[2021-11-08] MEDS: ATORVASTATIN 20 MG TAB PO SCH (08:08)
[2021-11-08] MEDS: POTASSIUM CHLORIDE 10MEQ SR TABLET PO SCH (08:08)
[2021-11-08] MEDS: ASPIRIN 81 MG CHEW TABLET PO SCH (08:08)
[2021-11-08] MEDS: METOCLOPRAMIDE INJ 10MG/2ML VIAL (J2765 PER 1) IV SCH ×2 (08:08→12:32)
[2021-11-08] MEDS: LIDOCAINE 5% (LIDODERM) PATCH TD SCH (08:14)
[2021-11-08] MEDS ORDERED: VALSARTAN 80 MG TAB (DIOVAN) PO SCH (09:00)
[2021-11-08] MEDS ORDERED: GI COCKTAIL 50ML BTL(HYOSCYAMINE/MAALOX/LIDOCAINE VISCOUS)(1:3:1) PO ONE (10:00)
[2021-11-08] MEDS ORDERED: HYDR25TA PO (12:21)
[2021-11-08] MEDS ORDERED: SUCR1TA PO (12:21)
[2021-11-08] MEDS ORDERED: VALS1TAB68 PO (12:21)
[2021-11-08] MEDS ORDERED: APIXABAN 5 MG TAB (ELIQUIS) PO ONE (14:00)
[2021-11-08] MEDS ORDERED: LIDO5DIS41 TD (15:32)
[2021-11-09] MEDS ORDERED: APIXABAN 5 MG TAB (ELIQUIS) PO SCH (09:00)
[2021-11-09 12:11] LABS: ANTI THROMBIN 3 ANTIGEN IMMUNO 114 % (72-124); ANTI THROMBIN 3 FUNCT ACTIVITY 102 % (75-135)
[2021-11-21] MEDS ORDERED: FURO40TA2 (11:58)
[2021-11-21] MEDS ORDERED: AMLO1TAB25 (11:58)
[2021-11-21] MEDS ORDERED: SPIR-10 (11:58)
== END 2021-11-08 16:06 | disposition home health service (06) | DRG 176 ==
LOC: M ED 08:03 → M ED INP 08:04 → ENRESERV 14:55 → M MSPAV 16:30 → OBSVTOIN 11-03 07:57
PROVIDERS: ADMIT General Practice; ATTEND Internal Medicine
PROC: B246ZZZ Ultrasonography of Right and Left Heart (ICD-10-PCS; principal; 2021-11-03)
PROC: BW24YZZ Computerized Tomography (CT Scan) of Chest and Abdomen using Other Contrast (ICD-10-PCS; 2021-11-03)
DX: I26.99 Other pulmonary embolism without acute cor pulmonale (principal); Z68.42 Body mass index [BMI] 45.0-49.9, adult; N39.0 Urinary tract infection, site not specified; E66.2 Morbid (severe) obesity with alveolar hypoventilation; Z86.711 Personal history of pulmonary embolism; I10 Essential (primary) hypertension; K21.9 Gastro-esophageal reflux disease without esophagitis; E55.9 Vitamin D deficiency, unspecified; M19.90 Unspecified osteoarthritis, unspecified site; E78.00 Pure hypercholesterolemia, unspecified; F41.9 Anxiety disorder, unspecified; Z20.822 Contact with and (suspected) exposure to COVID-19; Z88.2 Allergy status to sulfonamides; Z79.2 Long term (current) use of antibiotics; Z88.8 Allergy status to other drugs, medicaments and biological substances; M54.9 Dorsalgia, unspecified; G89.29 Other chronic pain; D64.9 Anemia, unspecified; R07.89 Other chest pain; I36.1 Nonrheumatic tricuspid (valve) insufficiency; Z90.49 Acquired absence of other specified parts of digestive tract; I27.20 Pulmonary hypertension, unspecified; K44.9 Diaphragmatic hernia without obstruction or gangrene; I16.0 Hypertensive urgency; E87.70 Fluid overload, unspecified; R09.02 Hypoxemia

== ENCOUNTER → 2021-11-25 | Outpatient (REF) | payer MEDICARE, OTHER ==
[~2021-11-25] MED LIST changes: +ACET-683 PO; +AMLO1TAB25; +ATOR40TA75 PO; +CHLO125TA PO; +CIPR500T39 PO; +CIPR750T2; +ELIQ5TAB PO; +FURO40TA2; +HYDR10TAB PO; +HYDR25TA PO; +ISOS10TA3 PO; +LEXA1TAB PO; +LIDO5DIS41 TD; +LORA-674 PO; +MSIR30TA PO; +ONDA-83 PO; +PERC5TAB12; +SENO8.6T10 PO; +SPIR-10; +SUCR1TA PO; +VALS1TAB67 PO; +VALS1TAB68 PO
[2021-11-25 19:05] LABS: BLOOD UREA NITROGEN 17 MG/DL (7-18); CALCIUM LEVEL 9.3 MG/DL (8.8-10.2); CARBON DIOXIDE LEVEL 32 MEQ/L (21-32); CHLORIDE LEVEL 104 MEQ/L (98-107); CREATININE FOR GFR 0.88 MG/DL (0.55-1.30); GLOMERULAR FILTRATION RATE > 60.0 (>39); GLUCOSE, FASTING 123 MG/DL (70-100); POTASSIUM SERUM 3.9 MEQ/L (3.5-5.1); SODIUM LEVEL 142 MEQ/L (136-145)
== END ==
LOC: M SFHCCLAY 10:26
PROVIDERS: ATTEND Family Medicine
DX: I10 Essential (primary) hypertension (principal)

== ENCOUNTER → 2021-12-16 | Outpatient (REF) | payer MEDICARE, OTHER ==
[2021-12-16 18:52] LABS: CREATININE FOR GFR 1.35 MG/DL (0.55-1.30); GLOMERULAR FILTRATION RATE 40.8 (>39); POTASSIUM SERUM 4.9 MEQ/L (3.5-5.1)
== END ==
LOC: M SFHCCLAY 10:27
PROVIDERS: ATTEND Family Medicine
DX: I10 Essential (primary) hypertension (principal)

== ENCOUNTER → 2021-12-16 | Outpatient (REF) | payer MEDICARE, OTHER | LOC: M LABDRAWC 16:30 | PROVIDERS: ATTEND Internal Medicine Critical Care Medicine | DX: I26.99 Other pulmonary embolism without acute cor pulmonale (principal); I10 Essential (primary) hypertension ==

== ENCOUNTER → 2022-01-09 | Outpatient (CLI) | payer MEDICARE, BC, OTHER ==
[~2022-01-09] MED LIST changes: +FURO20TA2 PO
== END ==
LOC: M CARPUL 12:20
PROVIDERS: ATTEND Internal Medicine Critical Care Medicine
DX: I26.99 Other pulmonary embolism without acute cor pulmonale (principal)

== ENCOUNTER → 2022-01-11 | Outpatient (REF) | payer MEDICARE, OTHER ==
[2022-01-11 18:32] LABS: CALCIUM LEVEL 9.3 MG/DL (8.3-10.6); CREATININE FOR GFR 1.06 MG/DL (0.55-1.30); GLOMERULAR FILTRATION RATE 53.9 (>39); POTASSIUM SERUM 4.8 MMOL/L (3.5-5.1)
== END ==
LOC: M SFHCCLAY 11:32
PROVIDERS: ATTEND Family Medicine
DX: I10 Essential (primary) hypertension (principal)

== ENCOUNTER → 2022-01-18 | Outpatient (REF) | payer MEDICARE, OTHER ==
[2022-01-19 13:38] LABS: HEMOGLOBIN A1c 5.2 % (4.0-6.0)
== END ==
LOC: M SFHCCLAY 16:42
PROVIDERS: ATTEND Family Medicine
DX: R73.9 Hyperglycemia, unspecified (principal)

== ENCOUNTER → 2022-08-25 | Outpatient (REF) | payer MEDICARE, OTHER ==
[2022-08-25 18:57] LABS: HEMATOCRIT 43.5 % (36.0-47.0); HEMOGLOBIN 13.8 g/dl (12.0-15.5); MEAN CORPUSCULAR HEMOGLOBIN 30.9 pg (27.0-33.0); MEAN CORPUSCULAR HGB CONC 31.7 g/dl (32.0-36.5); MEAN CORPUSCULAR VOLUME 97.5 fl (80.0-96.0); PLATELET COUNT, AUTOMATED 262 10^3/uL (150-450); RED BLOOD COUNT 4.46 10^6/uL (4.00-5.40); WHITE BLOOD COUNT 9.6 10^3/uL (4.0-10.0)
[2022-08-25 19:32] LABS: ALBUMIN 4.1 G/DL (3.2-5.2); BILIRUBIN,TOTAL 0.6 MG/DL (0.3-1.2); CALCIUM LEVEL 9.6 MG/DL (8.3-10.6); CHOLESTEROL RISK RATIO 2.32 (<5); CREATININE FOR GFR 1.08 MG/DL (0.55-1.30); GLOMERULAR FILTRATION RATE 52.7 (>39); HDL CHOLESTEROL 52.1 MG/DL (>40); LDL CHOLESTEROL 50.5 MG/DL (<100); NON-HDL-C 68.9 MG/DL; TOTAL PROTEIN 7.2 G/DL (5.7-8.2)
== END ==
LOC: M SFHCCLAY 09:42
PROVIDERS: ATTEND Family Medicine
DX: I10 Essential (primary) hypertension (principal); R06.09 Other forms of dyspnea; I27.20 Pulmonary hypertension, unspecified

== ENCOUNTER → 2022-10-05 | Outpatient (CLI) | payer MEDICARE, OTHER | LOC: M SLEEP 20:00 | PROVIDERS: ATTEND Internal Medicine Critical Care Medicine | DX: G47.33 Obstructive sleep apnea (adult) (pediatric) (principal) ==

== ENCOUNTER → 2022-10-16 | Outpatient (CLI) | payer MEDICARE, BC, OTHER | LOC: M WHC 12:26 | PROVIDERS: ATTEND Family Medicine | DX: Z12.31 Encounter for screening mammogram for malignant neoplasm of breast (principal) ==

== ENCOUNTER → 2022-11-17 | Outpatient (CLI) | payer MEDICARE, BC, OTHER ==
[~2022-11-17] MED LIST changes: +LORA-1041 PO; -LORA-674 PO
== END ==
LOC: M SLEEP 20:00
PROVIDERS: ATTEND Internal Medicine Critical Care Medicine
DX: G47.33 Obstructive sleep apnea (adult) (pediatric) (principal)

== ENCOUNTER → 2023-08-13 | Outpatient (REF) | payer MEDICARE, BC ==
[~2023-08-13] MED LIST changes: +HYDR-161 PO; -HYDR10TAB PO; -HYDR25TA PO; +HYDR25TA88 PO
[2023-08-13 17:53] LABS: HEMATOCRIT 40.4 % (36.0-47.0); MEAN CORPUSCULAR HEMOGLOBIN 31.7 pg (27.0-33.0); MEAN CORPUSCULAR HGB CONC 32.2 g/dl (32.0-36.5); MEAN CORPUSCULAR VOLUME 98.5 fl (80.0-96.0); PLATELET COUNT, AUTOMATED 223 10^3/uL (150-450); WHITE BLOOD COUNT 7.1 10^3/uL (4.0-10.0)
[2023-08-13 18:20] LABS: HEMOGLOBIN A1c 5.1 % (4.0-6.0)
[2023-08-13 18:23] LABS: ALBUMIN 3.6 G/DL (3.2-5.2); ALKALINE PHOSPHATASE 83 U/L (46-116); ALT/SGPT 32 U/L (7.0-40); AST/SGOT 39 U/L (<34); BILIRUBIN,TOTAL 0.6 MG/DL (0.3-1.2); BLOOD UREA NITROGEN 20 MG/DL (9-23); CALCIUM LEVEL 9.3 MG/DL (8.3-10.6); CARBON DIOXIDE LEVEL 33 MMOL/L (20-31); CHLORIDE LEVEL 101 MMOL/L (98-107); CHOLESTEROL LEVEL 121 MG/DL (<200); CHOLESTEROL RISK RATIO 2.44 (<5); CREATININE FOR GFR 0.91 MG/DL (0.55-1.30); GLOMERULAR FILTRATION RATE > 60.0 (>39); GLUCOSE, FASTING 97 MG/DL (74-106); HDL CHOLESTEROL 49.5 MG/DL (>40); LDL CHOLESTEROL 53.5 MG/DL (<100); NON-HDL-C 71.5 MG/DL; POTASSIUM SERUM 4.4 MMOL/L (3.5-5.1); SODIUM LEVEL 138 MMOL/L (136-145); TOTAL PROTEIN 6.8 G/DL (5.7-8.2); TRIGLYCERIDES LEVEL 90 MG/DL (<150)
== END ==
LOC: M SFHCCLAY 10:13
PROVIDERS: ATTEND Family Medicine
DX: I10 Essential (primary) hypertension (principal); I27.20 Pulmonary hypertension, unspecified; R06.09 Other forms of dyspnea; R73.9 Hyperglycemia, unspecified

== ENCOUNTER → 2023-10-19 | Outpatient (CLI) | payer MEDICARE, BC | LOC: M WHC 08:32 | PROVIDERS: ATTEND Family Medicine | DX: Z12.31 Encounter for screening mammogram for malignant neoplasm of breast (principal); R92.313 Mammographic fatty tissue density, bilateral breasts ==

== ENCOUNTER → 2023-11-20 | Outpatient (CLI) | payer MEDICARE, BC | LOC: M PLAIMG 09:20 | PROVIDERS: ATTEND Internal Medicine Critical Care Medicine | DX: I26.99 Other pulmonary embolism without acute cor pulmonale (principal); I27.20 Pulmonary hypertension, unspecified; I08.1 Rheumatic disorders of both mitral and tricuspid valves ==

== ENCOUNTER → 2023-12-05 | Outpatient (REF) | payer MEDICARE, BC | LOC: M LABDRAWC 16:46 | PROVIDERS: ATTEND Internal Medicine Critical Care Medicine | DX: I26.99 Other pulmonary embolism without acute cor pulmonale (principal); R06.09 Other forms of dyspnea ==

== ENCOUNTER → 2024-08-29 | Outpatient (REF) | payer MEDICARE, BC ==
[~2024-08-29] MED LIST changes: +LIDO1ADH93 TD; -LIDO5DIS41 TD; +MORP-137 PO; -MSIR30TA PO; +OMEP40CA5 PO; +POTA-151 PO
[2024-08-29 13:54] LABS: ESTIMATED AVERAGE GLUCOSE 100.0 MG/DL (60-110)
[2024-08-29 14:06] LABS: ALT/SGPT 24.0 U/L (7.0-40); AST/SGOT 33.0 U/L (<34); CALCIUM LEVEL 9.3 MG/DL (8.3-10.6); CARBON DIOXIDE LEVEL 29.0 MMOL/L (20-31); CHLORIDE LEVEL 103.0 MMOL/L (98-107); CHOLESTEROL LEVEL 122.0 MG/DL (<200); CHOLESTEROL RISK RATIO 2.22 (<5); CREATININE FOR GFR 0.85 MG/DL (0.55-1.30); GLOMERULAR FILTRATION RATE 70.5 (>39); LDL CHOLESTEROL 53.7 MG/DL (<100); NON-HDL-C 67.1 MG/DL; POTASSIUM SERUM 4.5 MMOL/L (3.5-5.1); SODIUM LEVEL 142.0 MMOL/L (136-145); TRIGLYCERIDES LEVEL 67.0 MG/DL (<150)
[2024-08-29 14:08] LABS: FREE T4 1.06 NG/DL (0.89-1.76)
== END ==
LOC: M SFHCCLAY 08:34
PROVIDERS: ATTEND Nurse Practitioner Family
DX: Z00.00 Encounter for general adult medical examination without abnormal findings (principal); I10 Essential (primary) hypertension; K21.00 Gastro-esophageal reflux disease with esophagitis, without bleeding; E78.00 Pure hypercholesterolemia, unspecified; I27.82 Chronic pulmonary embolism; G47.33 Obstructive sleep apnea (adult) (pediatric); I27.20 Pulmonary hypertension, unspecified; E04.1 Nontoxic single thyroid nodule; Z79.899 Other long term (current) drug therapy

== ENCOUNTER 2024-09-12 07:20 | Day surgery (SDC) | payer MEDICARE, BC ==
[~2024-09-12] VITALS: Ht 170.2 cm; Wt 127.6 kg
[2024-09-12] MEDS ORDERED: LIDOCAINE 2% 100 MG/5 ML SDV (FOR ANES.) As Ordered ONE (08:20)
[2024-09-12 08:55] VITALS: BP 137/63; O2SAT 97
== END 2024-09-12 09:10 | disposition home or self-care (01) ==
LOC: M OPP 07:20
PROVIDERS: ATTEND Surgery
DX: D12.6 Benign neoplasm of colon, unspecified (principal); K57.30 Diverticulosis of large intestine without perforation or abscess without bleeding; K64.8 Other hemorrhoids; Z86.0100 Personal history of colon polyps, unspecified; I10 Essential (primary) hypertension; E78.00 Pure hypercholesterolemia, unspecified; K21.9 Gastro-esophageal reflux disease without esophagitis; M19.90 Unspecified osteoarthritis, unspecified site; F41.9 Anxiety disorder, unspecified; F32.A Depression, unspecified; G47.33 Obstructive sleep apnea (adult) (pediatric); Z99.89 Dependence on other enabling machines and devices; Z86.711 Personal history of pulmonary embolism; Z88.2 Allergy status to sulfonamides; Z88.8 Allergy status to other drugs, medicaments and biological substances; Z79.01 Long term (current) use of anticoagulants; Z79.899 Other long term (current) drug therapy

== ENCOUNTER → 2024-09-19 | Outpatient (CLI) | payer MEDICARE, BC | LOC: M WHC 12:38 | PROVIDERS: ATTEND Nurse Practitioner Family | DX: E04.2 Nontoxic multinodular goiter (principal) ==

== ENCOUNTER → 2024-10-21 | Outpatient (CLI) | payer MEDICARE, BC | LOC: M WHC 10:07 | PROVIDERS: ATTEND Nurse Practitioner Family | DX: Z12.31 Encounter for screening mammogram for malignant neoplasm of breast (principal); R92.323 Mammographic fibroglandular density, bilateral breasts ==

== ENCOUNTER → 2024-12-22 | Outpatient (CLI) | payer MEDICARE, BC | LOC: M PLAIMG 13:30 | PROVIDERS: ATTEND Internal Medicine Critical Care Medicine | DX: I27.20 Pulmonary hypertension, unspecified (principal) ==

== ENCOUNTER → 2025-01-14 | Outpatient (REF) | payer MEDICARE, BC ==
[2025-01-14 13:28] LABS: ALT/SGPT 19.0 U/L (7.0-40); AST/SGOT 32.0 U/L (<34); CALCIUM LEVEL 9.4 MG/DL (8.3-10.6); CARBON DIOXIDE LEVEL 31.0 MMOL/L (20-31); CHLORIDE LEVEL 104.0 MMOL/L (98-107); CHOLESTEROL LEVEL 116.0 MG/DL (<200); CHOLESTEROL RISK RATIO 2.33 (<5); CREATININE FOR GFR 1.01 MG/DL (0.55-1.30); FREE T4 1.04 NG/DL (0.89-1.76); GLOMERULAR FILTRATION RATE 57.3 (>39); LDL CHOLESTEROL 53.6 MG/DL (<100); NON-HDL-C 66.4 MG/DL; POTASSIUM SERUM 4.6 MMOL/L (3.5-5.1); SODIUM LEVEL 146.0 MMOL/L (136-145); TRIGLYCERIDES LEVEL 64.0 MG/DL (<150)
== END ==
LOC: M SFHCCLAY 09:12
PROVIDERS: ATTEND Nurse Practitioner Family
DX: I10 Essential (primary) hypertension (principal); I27.20 Pulmonary hypertension, unspecified; E78.00 Pure hypercholesterolemia, unspecified; E04.1 Nontoxic single thyroid nodule